=== PATIENT | female | born 1945 | race Caucasian/White ===

== ENCOUNTER 2021-10-07 15:51 | Emergency (ER) | payer MEDICARE, MEDICAID ==
[~2021-10-07] VITALS: Ht 157.5 cm; Wt 104.5 kg
[2021-10-07 16:34] LABS: Basophils # (auto) 0.1 10 ^3/uL (0-0.2); Basophils % (auto) 0.8 % (0.0-2.0); Eosinophils # (auto) 0.4 10 ^3/uL (0-0.8); Hematocrit 32.7 % (36.0-46.0); Hemoglobin 10.7 g/dL (12.2-16.2); Lymphocytes # (auto) 2.8 10 ^3/uL (0.4-5.4); Lymphocytes % (auto) 35.9 % (10.0-50.0); Mean Corpuscular Hemoglobin 31.6 pg (28.0-32.0); Mean Corpuscular Hgb Conc. 32.9 g/dL (32.0-36.0); Monocytes # (auto) 0.5 10 ^3/uL (0-1.3); Monocytes % (auto) 6.6 % (0.0-12.0); Neutrophils # (auto) 4.1 10 ^3/uL (1.6-8.6); Neutrophils % (auto) 51.7 % (37.0-80.0); Nucleated Red Blood Cells % 0.1 %; Red Cell Distribution Width 13.5 % (11.8-14.3); White Blood Cell 7.9 10^3/uL (4.4-10.8)
[2021-10-07 16:53] LABS: Calcium 8.1 mg/dL (8.5-10.1); Chloride 109 mmol/L (98-107); Potassium 4.1 mmol/L (3.5-5.1); Sodium 140 mmol/L (136-145)
[2021-10-07 16:56] LABS: INR 0.97 (0.9-1.15); Partial Thromboplastin Time 21.9 sec (24.6-33.4)
[2021-10-07 17:02] LABS: Alanine Aminotransferase 20 U/L (13-56); Albumin 3.2 g/dL (3.4-5.0); Alkaline Phosphatase 92 U/L (45-117); Anion Gap 5 (5-15); Aspartate Aminotransferase 16 U/L (15-37); BUN/Creatinine Ratio 12.2; Bilirubin, Total 0.2 mg/dL (0.2-1.0); Blood Urea Nitrogen 14 mg/dL (7-18); Carbon Dioxide 26 mmol/L (21-32); GFR African American 59 mL/min; GFR Non-African American 49 mL/min; Glucose 113 mg/dL (74-106)
[2021-10-07] MEDS ORDERED: KETOROLAC TROMETH 60MG/2ML VIAL IM ONE (19:00)
[2021-10-07 19:30] VITALS: BP 130/74
== END 2021-10-07 19:51 | disposition home or self-care (01) ==
LOC: ER 15:51
DX: R06.00 Dyspnea, unspecified (principal); M79.10 Myalgia, unspecified site; J84.9 Interstitial pulmonary disease, unspecified
CPT/HCPCS: 36415; 71045; 80053; 83735; 83880; 84484; 85025; 85610; 85730; 93005; 96372; 99285; J1885

== ENCOUNTER 2022-01-06 09:34 | Emergency (ER) | payer MEDICARE, MEDICAID ==
[~2022-01-06] VITALS: Ht 165.1 cm; Wt 90.0 kg
[2022-01-06] MEDS ORDERED: MEPERIDINE HCL (50 MG/ML) 1 ML VIAL IM ONE (11:30)
[2022-01-06] MEDS ORDERED: PROMETHAZINE HCL 25 MG/ML 1ML IM ONE (11:30)
[2022-01-06 11:46] VITALS: BP 120/94
[2022-01-06] MEDS ORDERED: PRED20TA2 PO (12:06)
[2022-01-06] MEDS ORDERED: TRAM-297 PO (12:06)
== END 2022-01-06 12:46 | disposition home or self-care (01) ==
LOC: ER 09:34
DX: M51.36 Other intervertebral disc degeneration, lumbar region (principal); M50.30 Other cervical disc degeneration, unspecified cervical region; Z88.6 Allergy status to analgesic agent
CPT/HCPCS: 72040; 72100; 96372; 99284; J2175; J2550

== ENCOUNTER 2023-07-11 12:48 | Inpatient (IN) | payer MEDICARE, MEDICAID ==
[~2023-07-11] VITALS: Ht 165.1 cm; Wt 97.7 kg
[~2023-07-11 12:48] MED LIST: PRED20TA2 PO; TRAM-297 PO
[2023-07-11 13:44] LABS: Urine Bacteria None Seen /hpf (None Seen)
[2023-07-11 14:14] LABS: Urine Blood Negative /uL (Negative); Urine Clarity Clear (Clear); Urine Protein, UAD Negative (Negative); Urine Specific Gravity 1.005 (1.001-1.035); Urine Urobilinogen Normal (Negative); Urine WBC <1 /hpf (0 - 5)
[2023-07-11 14:21] LABS: Urine Color STRAW (Yellow)
[2023-07-11 14:29] LABS: Basophils # (auto) 0.1 10 ^3/uL (0-0.2); Basophils % (auto) 0.8 % (0.0-2.0); Eosinophils # (auto) 0.4 10 ^3/uL (0-0.8); Eosinophils % (auto) 5.6 % (0.0-7.0); Hematocrit 31.5 % (36.0-46.0); Hemoglobin 10.5 g/dL (12.2-16.2); Lymphocytes # (auto) 3.3 10 ^3/uL (0.4-5.4); Lymphocytes % (auto) 46.4 % (10.0-50.0); Mean Corpuscular Hemoglobin 32.3 pg (28.0-32.0); Mean Corpuscular Hgb Conc. 33.4 g/dL (32.0-36.0); Mean Corpuscular Volume 96.7 fL (80.0-100.0); Monocytes # (auto) 0.5 10 ^3/uL (0-1.3); Monocytes % (auto) 7.7 % (0.0-12.0); Neutrophils # (auto) 2.8 10 ^3/uL (1.6-8.6); Neutrophils % (auto) 39.5 % (37.0-80.0); Nucleated Red Blood Cells % 0.1 %; Red Blood Cells 3.25 10^6/uL (4.0-5.20); White Blood Cell 7.1 10^3/uL (4.4-10.8)
[2023-07-11 15:12] LABS: Alanine Aminotransferase 19 U/L (7-40); Albumin 3.9 g/dL (3.2-4.8); Alkaline Phosphatase 80 U/L (46-116); Anion Gap 5 (5-15); Aspartate Aminotransferase 18 U/L (13-40); BUN/Creatinine Ratio 12.4 (10.0-20.0); Bilirubin, Total 0.4 mg/dL (0.2-1.0); Blood Urea Nitrogen 12 mg/dL (9-23); Calcium 9.4 mg/dL (8.5-10.1); Carbon Dioxide 28 mmol/L (20-30); Chloride 100 mmol/L (98-107); Glucose 101 mg/dL (74-106); Sodium 133 mmol/L (136-145); Total Protein 9.6 g/dL (5.7-8.2)
[2023-07-11] MEDS ORDERED: ATOR40TA52 PO (15:57)
[2023-07-11] MEDS ORDERED: LOSA-534 PO (15:57)
[2023-07-11] MEDS ORDERED: DOCUSATE SOD 100 MG CAP PO PRN (16:00)
[2023-07-11] MEDS ORDERED: HYDROcodone-ACET 5/325MG TAB PO PRN (16:00)
[2023-07-11] MEDS ORDERED: NITROGLYCERIN 0.4 MG SL TAB SL PRN (16:00)
[2023-07-11] MEDS ORDERED: ONDANSETRON HCL 4 MG/2 ML VIAL IV PRN (16:00)
[2023-07-11] MEDS ORDERED: MORPHINE SULFATE INJ 2 MG/ml SYRG IV PRN ×2 (16:00)
[2023-07-11] MEDS: PANTOPRAZOLE 40 MG/10 ML VIAL INJ IV ONE (16:15)
[2023-07-11] MEDS: SODIUM CHLORIDE 0.9% 1,000 ML IV ONE (16:15)
[2023-07-11] MEDS: ACETAMINOPHEN 325 MG TAB PO PRN (16:20)
[2023-07-11] MEDS ORDERED: IPRATROPIUM BROM 0.5 MG/2.5ML INH SOL NEB PRN (16:45)
[2023-07-11] MEDS ORDERED: ALBUTEROL SULF 2.5 MG/0.5ML(0.5%) NEB SOLN NEB PRN (16:45)
[2023-07-11 20:28] VITALS: PULSE 85; RESP 16; O2SAT 94
[2023-07-11] MEDS: SUCRALFATE 1 GM TAB PO SCH (20:28)
[2023-07-11 21:08] VITALS: BP 143/64; PULSE 99; RESP 18; O2SAT 94
[2023-07-11 22:20] VITALS: BP 154/63; PULSE 85; RESP 18; TEMP 98.1; O2SAT 96
[2023-07-11 22:22] VITALS: BP 154/63; PULSE 85; RESP 16; RESP 18; TEMP 98.1; O2SAT 96
[2023-07-11 22:40] VITALS: O2SAT 94
[2023-07-11] MEDS: ATORVASTATIN 20 MG TAB PO SCH (23:10)
[2023-07-12] VITALS (7 sets, daily range): BP systolic 104–142; BP diastolic 43–85; PULSE 76–95; RESP 15–20; TEMP 97.9–98.7; O2SAT 92–99
[2023-07-12] MEDS ORDERED: LIDO1PAD55 TOP (03:01)
[2023-07-12] MEDS ORDERED: IBUP-1455 PO (03:01)
[2023-07-12 07:27] LABS: Basophils # (auto) 0.1 10 ^3/uL (0-0.2); Basophils % (auto) 1.4 % (0.0-2.0); Eosinophils # (auto) 0.4 10 ^3/uL (0-0.8); Eosinophils % (auto) 5.3 % (0.0-7.0); Hematocrit 28.1 % (36.0-46.0); Hemoglobin 9.1 g/dL (12.2-16.2); Lymphocytes % (auto) 38.4 % (10.0-50.0); Mean Corpuscular Hemoglobin 31.8 pg (28.0-32.0); Mean Corpuscular Hgb Conc. 32.4 g/dL (32.0-36.0); Mean Corpuscular Volume 98.1 fL (80.0-100.0); Monocytes # (auto) 0.7 10 ^3/uL (0-1.3); Monocytes % (auto) 8.9 % (0.0-12.0); Neutrophils # (auto) 3.6 10 ^3/uL (1.6-8.6); Nucleated Red Blood Cells % 0.2 %; Red Blood Cells 2.87 10^6/uL (4.0-5.20); Red Cell Distribution Width 14.1 % (11.8-14.3); White Blood Cell 7.8 10^3/uL (4.4-10.8)
[2023-07-12 07:37] LABS: Alanine Aminotransferase 16 U/L (7-40); Albumin 3.6 g/dL (3.2-4.8); Alkaline Phosphatase 75 U/L (46-116); Anion Gap 4 (5-15); Aspartate Aminotransferase 14 U/L (13-40); BUN/Creatinine Ratio 12.6 (10.0-20.0); Bilirubin, Total 0.4 mg/dL (0.2-1.0); Blood Urea Nitrogen 12 mg/dL (9-23); Calcium 9.2 mg/dL (8.5-10.1); Carbon Dioxide 29 mmol/L (20-30); Chloride 104 mmol/L (98-107); Cholesterol 124 mg/dL (< 200); Glucose 98 mg/dL (74-106); HDL Cholesterol 33 mg/dL (40-59); LDL Cholesterol 69 mg/dL (< 100); Potassium 3.8 mmol/L (3.5-5.1); Sodium 137 mmol/L (136-145); Triglycerides 114 mg/dL (< 150)
[2023-07-12 07:38] LABS: Total Protein 8.7 g/dL (5.7-8.2)
[2023-07-12] MEDS ORDERED: PANTOPRAZOLE 40 MG/10 ML VIAL INJ IV SCH ×2 (10:00→22:00)
[2023-07-12] MEDS: LOSARTAN POTASSIUM 50 MG TAB PO SCH (11:48)
[2023-07-12] MEDS: ENOXAPARIN SOD 40 MG/0.4 ML SYRINGE SC SCH (11:49)
[2023-07-12] MEDS ORDERED: SUCR1TAB PO (13:09)
[2023-07-12] MEDS ORDERED: PANT40TA2 PO (13:09)
[2023-07-13 09:24] LABS: Hepatitis B Surface Antigen Negative (Negative)
[2023-07-13 09:46] LABS: Hepatitis C Antibody Negative (Negative)
== END 2023-07-12 16:00 | disposition home or self-care (01) | DRG 392 ==
LOC: ER 12:54 → OVERFLOW 15:56 → CENTRAL 22:05
PROVIDERS: ADMIT Nurse Practitioner Family; ATTEND Internal Medicine Geriatric Medicine
DX: K29.00 Acute gastritis without bleeding (principal); J84.9 Interstitial pulmonary disease, unspecified; C90.00 Multiple myeloma not having achieved remission; E78.5 Hyperlipidemia, unspecified; I10 Essential (primary) hypertension; T39.395A Adverse effect of other nonsteroidal anti-inflammatory drugs [NSAID], initial encounter; E04.2 Nontoxic multinodular goiter; K40.20 Bilateral inguinal hernia, without obstruction or gangrene, not specified as recurrent; Z88.6 Allergy status to analgesic agent; Z79.899 Other long term (current) drug therapy; Z85.820 Personal history of malignant melanoma of skin; Z90.49 Acquired absence of other specified parts of digestive tract; Z82.49 Family history of ischemic heart disease and other diseases of the circulatory system; Z80.0 Family history of malignant neoplasm of digestive organs; Y92.89 Other specified places as the place of occurrence of the external cause
CPT/HCPCS: 36415; 74176; 80053; 80061; 81001; 83690; 84443; 85025; 86803; 87340; 93971; C9113; G0378

== ENCOUNTER 2023-07-20 16:26 | Emergency (ER) | payer MEDICARE, MEDICAID ==
[~2023-07-20] VITALS: Ht 165.1 cm; Wt 95.4 kg
[~2023-07-20 16:26] MED LIST changes: +ATOR40TA52 PO; +LIDO1PAD55 TOP; +LOSA-534 PO; +PANT40TA2 PO; -PRED20TA2 PO; +SUCR1TAB PO
[2023-07-20] MEDS: KETOROLAC TROMETH 30 MG/ML 1ML VIAL IM ONE (17:53)
[2023-07-20 19:49] VITALS: BP 152/92; PULSE 77; RESP 18; TEMP 97.9; O2SAT 95
== END 2023-07-20 19:57 | disposition home or self-care (01) ==
LOC: ER 16:26
DX: M79.662 Pain in left lower leg (principal); R51.9 Headache, unspecified; I10 Essential (primary) hypertension; E78.5 Hyperlipidemia, unspecified; R42 Dizziness and giddiness; Z88.6 Allergy status to analgesic agent
CPT/HCPCS: 93971; 96372; 99285; J1885

== ENCOUNTER 2023-08-17 21:55 | Emergency (ER) | payer MEDICARE, MEDICAID ==
[~2023-08-17] VITALS: Ht 165.1 cm; Wt 97.2 kg
[2023-08-17 23:09] LABS: Urine Bacteria FEW /hpf (None Seen); Urine Blood Negative /uL (Negative); Urine Clarity Clear (Clear); Urine Protein, UAD Negative (Negative); Urine Specific Gravity 1.004 (1.001-1.035); Urine Urobilinogen Normal (Negative); Urine WBC <1 /hpf (0 - 5)
[2023-08-17 23:11] LABS: Urine Color Straw (Yellow)
[2023-08-17] MEDS: DICYCLOMINE HCL 10 MG CAP PO ONE (23:59)
[2023-08-18] MEDS: KETOROLAC TROMETH 60MG/2ML VIAL IM ONE
[2023-08-18 00:08] VITALS: BP 128/76; PULSE 85; RESP 18; TEMP 98.3; O2SAT 95
[2023-08-18] MEDS ORDERED: DICY10CA PO (00:51)
== END 2023-08-18 01:02 | disposition home or self-care (01) ==
LOC: ER 21:55
DX: I10 Essential (primary) hypertension (principal); R10.9 Unspecified abdominal pain; E78.5 Hyperlipidemia, unspecified; M19.90 Unspecified osteoarthritis, unspecified site; E66.01 Morbid (severe) obesity due to excess calories; Z68.35 Body mass index [BMI] 35.0-35.9, adult; Z85.9 Personal history of malignant neoplasm, unspecified; Z98.890 Other specified postprocedural states; Z88.8 Allergy status to other drugs, medicaments and biological substances; Z79.899 Other long term (current) drug therapy
CPT/HCPCS: 81001; 93005; 96372; 99284; J0500; J1885

== ENCOUNTER → 2023-10-23 | Outpatient (CLI) | payer MEDICARE, MEDICAID ==
[~2023-10-23] MED LIST changes: +DICY10CA PO
[2023-10-23 11:03] LABS: Erythrocyte Sedimentation Rate 103 mm/hr (0-20)
[2023-10-24 08:06] LABS: Complement C3 119 mg/dL (82-167); Rheumatoid Arthritis Factor <10.0 IU/mL (<14.0); Thyroid Peroxidase (TPO) Ab <9 IU/mL (0-34)
[2023-10-24 12:06] LABS: Anti-Nuclear Antibody Direct Negative (Negative); Anti-dsDNA Antibody <1 IU/mL (0-9); Antiscleroderma-70 Antibody <0.2 AI (0.0-0.9); RNP Antibody <0.2 AI (0.0-0.9); Sjogren's Anti-SS-A Antibody <0.2 AI (0.0-0.9); Sjogren's Anti-SS-B Antibody <0.2 AI (0.0-0.9); Smith Antibody <0.2 AI (0.0-0.9)
== END | disposition home or self-care (01) ==
LOC: LAB 09:52
PROVIDERS: ATTEND Internal Medicine
DX: C90.00 Multiple myeloma not having achieved remission (principal); N18.2 Chronic kidney disease, stage 2 (mild); E04.1 Nontoxic single thyroid nodule
CPT/HCPCS: 36415; 84550; 85652; 86160; 86225; 86235; 86376; 86431

== ENCOUNTER → 2024-01-09 | Outpatient (CLI) | payer MEDICARE, MEDICAID ==
[2024-01-09 13:35] LABS: Erythrocyte Sedimentation Rate 113 mm/hr (0-20)
[2024-01-09 13:46] LABS: Alanine Aminotransferase 20 U/L (7-40); Albumin 3.8 g/dL (3.2-4.8); Alkaline Phosphatase 93 U/L (46-116); Anion Gap 1 (5-15); Aspartate Aminotransferase 15 U/L (13-40); BUN/Creatinine Ratio 11.5 (10.0-20.0); Bilirubin, Total 0.3 mg/dL (0.2-1.0); Blood Urea Nitrogen 11 mg/dL (9-23); Calcium 9.3 mg/dL (8.7-10.4); Carbon Dioxide 31 mmol/L (20-31); Chloride 105 mmol/L (98-107); Cholesterol 185 mg/dL (< 200); Glucose 92 mg/dL (74-106); HDL Cholesterol 44 mg/dL (40-59); LDL Cholesterol 111 mg/dL (< 100); Potassium 4.3 mmol/L (3.5-5.1); Sodium 137 mmol/L (136-145); Total Protein 9.3 g/dL (5.7-8.2); Triglycerides 120 mg/dL (< 150)
== END | disposition home or self-care (01) ==
LOC: LAB 12:37
PROVIDERS: ATTEND Internal Medicine
DX: E04.1 Nontoxic single thyroid nodule (principal); M54.2 Cervicalgia; Z79.899 Other long term (current) drug therapy
CPT/HCPCS: 36415; 80053; 80061; 84443; 85652

== ENCOUNTER 2024-02-16 11:17 | Emergency (ER) | payer MEDICARE, MEDICAID ==
[~2024-02-16] VITALS: Ht 165.1 cm; Wt 96.0 kg
--- NOTE | 2024-02-16 12:12 | ED.PDOC ---
SOB-HPI HPI Comments HPI: Poor Historian. 78-year-old female sent from urgent Care for further evaluation for persistent cough and congestion mild shortness of breath. requested lab work. patient just completed a course of antibiotics and steroids but does not feel like she has improved. Patient states that she received a breathing treatment in urgent Care earlier prior to coming to the ED. VITALS: Temp: 98.2 F RR: 17 02 sat : 94 % on room air HR: 92 BP: 111/43 PMH: interstitial lung disease, thyroid nodules , HTN, hyperlipidemia PSH: cholecystectomy, rotator cuff x2, tubal ligation Social history: denies tobacco use, denies ETOH use, denies drug use Medications: albuterol, unknown hypertension and hyperlipidemia meds Allergies: codeine REVIEW OF SYSTEMS: CONSTITUTIONAL: Denies acute: fever, diaphoresis, chills, HEAD: Denies acute: headache, photophobia Eyes: Denies acute: Double vision, vision loss, eye pain, eye discharge. EARS: Denies acute: tinnitus, hearing loss, ear discharge, ear pain, THROAT: Denies acute: sore throat, swelling, difficulty swallowing , pain with swallowing, change in voice. NECK: Denies acute: neck pain, neck swelling, stiff neck. HEART: Denies acute : chest pain, palpitations, LUNGS: Denies acute: hemoptysis ABDOMEN: Denies acute: abdominal pain, Nausea, Vomiting, diarrhea, melena , hematemesis, hematochezia SKIN: Denies acute: rash, redness, lesions, itchiness. EXTREMITIES: Denies acute: calf pain, numbness, tingling, weakness, denies pain in extremity. Denies acute: Low back pain. Neuro: Denies acute: focal neurological deficit, motor or sensory focal neurological deficit, tremors, seizure like activity, confusion, dizziness, change in mental status, loss of bowel or bladder function, cauda equina like symptoms. : Denies acute: dysuria, hematuria, flank pain, increase in urinary frequency. PSYCH: Denies acute: hallucination, suicidal ideation, homicidal ideation. FEMALE: Denies acute: abnormal vaginal bleeding, foul odor, unusual discharge. PHYSICAL EXAM: General: no acute distress, awake and alert. Head: normocephalic, atraumatic. Neck: supple, trachea is midline, no swelling. Throat: Normal phonation. Eyes:, no erythema, no purulent discharge, no proptosis, no icterus. Heart: regular rate, regular rhythm, no significant murmur appreciated. Lungs: no apparent respiratory distress, Able to speak in full sentences. No wheezing, no rhonchi, no crackles. No stridors Clear to auscultation bilaterally. Abdomen: non tender to palpation, non distended, soft, no guarding, no rebound, + bowel sounds. Obese. Neuro: Awake, Alert, oriented to name, self, situation, follows commands GCS=15. Speech is normal. Skin: no petechia, no purpura, no cyanosis, non-pale, not jaundice. Lower extremities: --trace bilateral - Pitting edema no deformity, no focal swelling, no calf TTP. Makes eye contact. moves all four extremities. Face: no apparent facial droop. 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 Was a procedure done?: No Differential Dx Differential Diagnosis: Other (DDx include ACS, unstable angina, anxiety, PE, pneumothroax, neoplasm, cardiac ischemia, COPD, asthma, CHF, pleural effusion, tobacco abuse, pneumonia, hypoxia, hypercapnia, anemia., infection/sepsis., pulmonary edema. Asthma, Cardiac tamponade, infection.) X-Ray, Labs, Meds, VS Vital Signs Date Time Temp Pulse Resp B/P (MAP) Pulse Ox O2 Delivery O2 Flow Rate FiO2 02/16/24 21:48 17 97 Room Air 02/16/24 21:47 98.4 89 17 128/72 (90) 97 98.4 02/16/24 16:03 19 94 Room Air* 0 21 02/16/24 16:02 97 19 96 Room Air 02/16/24 16:02 98.6 97 19 134/86 (102) 96 98.6 02/16/24 11:59 98.2 92 17 111/43 (65) 94 Lab Test 02/16/24 14:55 02/16/24 13:30 02/16/24 13:01 02/16/24 12:08 Range/Units Troponin I High Sensitivity 9 9 </=34 ng/L Blood Gas Specimen Type Arterial Blood Gas Sample Site Right radial Blood Gas Patient Temperature 37.0 Arterial Blood Date Drawn [id number] Arterial Blood pH 7.427 7.350-7.450 Arterial Blood Partial Pressure CO2 39.7 32.0-45.0 mmHg Arterial Blood Partial Pressure O2 81.2 L 83.0-108.0 mmHg Arterial Blood HCO3 25.6 21.0-28.0 mmol/L Arterial Blood Oxygen Saturation 95.3 94.0-98.0 % Arterial Blood Base Excess 1.2 -2.0-3.0 mmol/L Arterial Blood Oxyhemoglobin 94.8 94.0-98.0 % Arterial Blood Carboxyhemoglobin 0.1 L 0.5-1.5 % Arterial Blood Methemoglobin 0.4 0.0-1.5 % Dao Test Yes Blood Gas Total Hemoglobin 11.70 L 12.0-16.0 g/dL Blood Gas Modality Room air FiO2 % 21.0 Influenza Type A Antigen Negative Negative Influenza Type B Antigen Negative Negative SARS-CoV-2 Antigen (Rapid) Negative NEGATIVE Test 02/16/24 11:58 Range/Units White Blood Count 9.8 4.4-10.8 10^3/uL Red Blood Count 3.33 L 4.0-5.20 10^6/uL Hemoglobin 10.8 L 12.2-16.2 g/dL Hematocrit 32.9 L 36.0-46.0 % Mean Corpuscular Volume 98.7 80.0-100.0 fL Mean Corpuscular Hemoglobin 32.6 H 28.0-32.0 pg Mean Corpuscular Hemoglobin Concent 33.0 32.0-36.0 g/dL Red Cell Distribution Width 13.9 11.8-14.3 % Platelet Count 344 140-450 10^3/uL Mean Platelet Volume 7.2 6.9-10.8 fL Neutrophils (%) (Auto) 37.0-80.0 % Lymphocytes (%) (Auto) 10.0-50.0 % Monocytes (%) (Auto) 0.0-12.0 % Basophils (%) (Auto) 0.0-2.0 % Neutrophils # (Auto) 1.6-8.6 10 ^3/uL Lymphocytes # (Auto) 0.4-5.4 10 ^3/uL Monocytes # (Auto) 0-1.3 10 ^3/uL Differential Total Cells Counted 100.0 100 Neutrophils % (Manual) 32 L 37.0-80.0 Band Neutrophils % (Manual) 0 Lymphocytes % (Manual) 62 H 10.0-50.0 Monocytes % (Manual) 0 0-12 Eosinophils % (Manual) 2 0-7 Basophils % (Manual) 0 0.0-2.0 Metamyelocytes % (manual) 0 Myelocytes % (Manual) 0 Promyelocytes % (Manual) 0 Blast Cells % (Manual) 0 Reactive Lymphocytes 4 Platelet Estimate Adequate Sodium Level 138 136-145 mmol/L Potassium Level 3.8 3.5-5.1 mmol/L Chloride Level 104 98-107 mmol/L Carbon Dioxide Level 29 20-31 mmol/L Anion Gap 5 5-15 Blood Urea Nitrogen 16 9-23 mg/dL Creatinine 1.15 H 0.550-1.02 mg/dL Glomerular Filtration Rate Calc 49 >90 mL/min BUN/Creatinine Ratio 13.9 10.0-20.0 Serum Glucose 145 H 74-106 mg/dL Calcium Level 9.5 8.7-10.4 mg/dL Total Bilirubin 0.3 0.2-1.0 mg/dL Aspartate Amino Transferase (AST) 15 13-40 U/L Alanine Aminotransferase (ALT) 29 7-40 U/L Alkaline Phosphatase 78 46-116 U/L Troponin I High Sensitivity 9 </=34 ng/L B-Type Natriuretic Peptide 29.30 0-100 pg/mL Total Protein 8.6 H 5.7-8.2 g/dL Albumin 3.7 3.2-4.8 g/dL [place] [address] Ph: [phone] DIAGNOSTIC IMAGING Diagnostic Imaging Report : [id number] Signed PATIENT: ELLIOTT CHEN LACCT: [id number] UNIT: [id number] : 1945 LOC: ER ROOM / BED: / AGE / SEX: 78 / F ADM STATUS: REG ER SERVICE 1150 ORDERING PHYSICIAN: JAYCE ALBRECHT DO PROCEDURE(s): CXRP - CHEST PORTABLE REASON: sob ORDER NUMBER(s): [id number], ACCESSION NUMBER(s): [id number] CHEST RADIOGRAPH Indication: sob Technique: Single frontal view of the chest was obtained Comparison: CHEST XRAY 1 VIEW on DOS: 10/07/21, CXR1 on DOS: 10/07/21 FINDINGS: Lines and Tubes: None Lungs: No focal consolidation. Pleura: No effusion. No pneumothorax. Cardiomediastinal contours: Unremarkable Bones: No acute osseous abnormality. IMPRESSION: No acute cardiopulmonary disease. ATED BY: ERNESTINA HOUSTON MD DICTATED DATE/TIME: 02/16/241208 SIGNED BY: ERNESTINA HOUSTON MD SIGNED DATE/TIME: 02/16/241208 CC: Patient Education/Counseling: Diagnosis, Treatment Family Education/Counseling: No Family Present Comments MDM: Patient presented with the above HPI.----- shortness of breath and cough-- - workup was initiated. patient was found with the above mentioned diagnosis. the following medications were ordered: med neb treatment, acetaminophen, ipratropium med neb, albuterol, solumedrol, the following tests were ordered: ABG, troponin x3, EKGx1, chest x-ray, UA, Influenza A and B, COVID test, CBC CMP, BNP Patient ED course and VS have been stabilized. Patient has been reassessed in the ED and remained in a stable condition. Patient has been observed in the ED adequate length of time to insure improvement/stability. Escalation of care considered: Consideration of escalation to observation or admission. patient was DISCHARGED after further evaluation and treatment of their presentation. All the reports of any imaging studies that were ordered by myself were reviewed by myself. Departure 1 Departure Time of Disposition: 18:55 Impression: Primary Impression: URI (upper respiratory infection) Additional Impressions: Anemia Bronchitis Disposition: HOME / SELF CARE / HOMELESS Condition: Stable Additional Instructions: Additional discharge instructions: You MUST follow-up with your primary care/family doctor in 1 to 2 days. If you are unable to see your primary care/family doctor, please return to our emergency room for re-assessment and re-evaluation in 1 to 2 days. Return to the emergency room here in our facility or to the nearest ER [facility] if your symptoms change or worsen. CONSULTATIONS: you MUST Follow-up for consultation as soon as possible with: -pulmonology and cardiology in 1-2 days. Please call for appointment. You MUST call the consultants office yourself to make an appointment. You may need to arrange that through your insurance and/or your primary/family doctor. If you are unable to see the sales consultant insurance in 1 to 2 days, you must return to our emergency room (or any other ER of your choice) for re-assessment and re- evaluation. Adequate fluid hydration. Use your inhaler at home as instructed. Below is a copy of your radiological report for follow up: [place] [address] Ph: [phone] DIAGNOSTIC IMAGING Diagnostic Imaging Report : [id number] Signed PATIENT: ELLIOTT CHEN ACCT: [id number] UNIT: [id number] : 1945 LOC: ER ROOM / BED: / AGE / SEX: 78 / F ADM STATUS: REG ER SERVICE 1150 ORDERING PHYSICIAN: JAYCE ALBRECHT DO PROCEDURE(s): CXRP - CHEST PORTABLE REASON: sob ORDER NUMBER(s): [id number], ACCESSION NUMBER(s): [id number] CHEST RADIOGRAPH Indication: sob Technique: Single frontal view of the chest was obtained Comparison: CHEST XRAY 1 VIEW on DOS: 10/07/21, CXR1 on DOS: 10/07/21 FINDINGS: Lines and Tubes: None Lungs: No focal consolidation. Pleura: No effusion. No pneumothorax. Cardiomediastinal contours: Unremarkable Bones: No acute osseous abnormality. IMPRESSION: No acute cardiopulmonary disease. ATED BY: ERNESTINA HOUSTON MD DICTATED DATE/TIME: 02/16/24 1209 SIGNED BY: ERNESTINA HOUSTON MD SIGNED DATE/TIME: 02/16/24 120 CC: Discharged With: Self Critical Care Note Critical Care Time?: No Heart Score Heart Score: Heart Score Response (Comments) Value History Moderate Suspicious 1 Age >65 2 Risk Factors 1 or 2 risk factors 1 Total 4 I personally scribed for JAYCE ALBRECHT DO ([facility]) on 02/16/24 at 12:12. Electronically submitted by Gerson Cardoza ([facility] [employer] [employer] I personally scribed for JAYCE ALBRECHT DO ([facility]) on 02/16/24 at 13:54. Electronically submitted by Gerson Cardoza ([facility]). I personally scribed for JAYCE ALBRECHT DO ([facility]) on 02/16/24 at 19:53. Electronically submitted by Gerson Cardoza ([facility]). JAYCE ALBRECHT DO Feb 16, 2024 12:12
[2024-02-16 12:18] LABS: Hematocrit 32.9 % (36.0-46.0); Hemoglobin 10.8 g/dL (12.2-16.2); Mean Corpuscular Hemoglobin 32.6 pg (28.0-32.0); Mean Corpuscular Volume 98.7 fL (80.0-100.0); Platelet Count (auto) 344 10^3/uL (140-450); Red Blood Cells 3.33 10^6/uL (4.0-5.20); Red Cell Distribution Width 13.9 % (11.8-14.3); White Blood Cell 9.8 10^3/uL (4.4-10.8)
[2024-02-16 12:21] LABS: Band Neutrophils % (manual) 0; Basophils % (manual) 0 (0.0-2.0); Blast Cells 0; Metamyelocytes % 0; Monocytes % (manual) 0 (0-12); Myelocytes % 0; Promyelocytes % 0
[2024-02-16 12:41] LABS: Alanine Aminotransferase 29 U/L (7-40); Albumin 3.7 g/dL (3.2-4.8); Alkaline Phosphatase 78 U/L (46-116); Anion Gap 5 (5-15); Aspartate Aminotransferase 15 U/L (13-40); BUN/Creatinine Ratio 13.9 (10.0-20.0); Blood Urea Nitrogen 16 mg/dL (9-23); Calcium 9.5 mg/dL (8.7-10.4); Carbon Dioxide 29 mmol/L (20-31); Chloride 104 mmol/L (98-107); Potassium 3.8 mmol/L (3.5-5.1); Sodium 138 mmol/L (136-145)
[2024-02-16 12:42] LABS: Bilirubin, Total 0.3 mg/dL (0.2-1.0)
[2024-02-16 13:01] LABS: Glucose 145 mg/dL (74-106); Total Protein 8.6 g/dL (5.7-8.2)
[2024-02-16 13:10] LABS: Rapid Influenza A Negative (Negative); Rapid Influenza B Negative (Negative)
[2024-02-16 13:11] LABS: COVID19 ANTIGEN SOFIA FIA NEGATIVE (NEGATIVE)
[2024-02-16 13:19] LABS: Eosinophils % (manual) 2 (0-7); Lymphocytes % (manual) 62 (10.0-50.0); Platelet Estimate Adequate; Reactive Lymphocytes 4
[2024-02-16 13:44] LABS: Base Excess 1.2 mmol/L (-2.0-3.0)
[2024-02-16] MEDS: ACETAMINOPHEN 325 MG TAB PO ONE (15:53)
[2024-02-16] MEDS: ALBUTEROL SULF 2.5 MG/0.5ML(0.5%) NEB SOLN NEB ONE (16:03)
[2024-02-16] MEDS: IPRATROPIUM BROM 0.5 MG/2.5ML INH SOL NEB ONE (16:03)
[2024-02-16] MEDS: methylPREDNISolone SOD SUCC 125 MG/2 ML VL IV ONE (16:10)
[2024-02-16 21:47] VITALS: BP 128/72; PULSE 89; TEMP 98.4
[2024-02-16 21:48] VITALS: RESP 17; O2SAT 97
== END 2024-02-16 21:49 | disposition home or self-care (01) ==
LOC: ER 11:17
DX: D64.9 Anemia, unspecified (principal); J40 Bronchitis, not specified as acute or chronic; J06.9 Acute upper respiratory infection, unspecified; E78.5 Hyperlipidemia, unspecified; I10 Essential (primary) hypertension; M19.90 Unspecified osteoarthritis, unspecified site; Z88.5 Allergy status to narcotic agent; Z90.49 Acquired absence of other specified parts of digestive tract; Z98.51 Tubal ligation status; Z20.822 Contact with and (suspected) exposure to COVID-19
CPT/HCPCS: 36415; 36600; 71045; 80053; 82805; 83880; 84484; 85007; 85027; 87426; 87804; 94640; 96374; 99284; J2919

== ENCOUNTER 2024-04-10 09:46 | Inpatient (IN) | payer MEDICARE, MEDICAID ==
[~2024-04-10] VITALS: Ht 165.1 cm; Wt 97.0 kg
[2024-04-10] MEDS: diazePAM 5 MG TAB PO ONE (10:15)
--- NOTE | 2024-04-10 10:26 | ED.PDOC ---
Back pain HPI HPI Comments 78Y F with PMHx HTN, HLD, arthritis, and chronic back pain presents to ED for chief complaint back pain/spasms x5days. Pt states back pain radiates down LLE. Pt is being f/u by rheumatology and PCP. Pt has been taking Flexeril 10mg without relief. Per pt, MRI of spine was done within the last year. No other symptoms reported. Chief Complaint: Back Pain Time Seen by MD: 10:09 Primary Care Provider: POLLY Reyes Notes: Nurses Notes, Medications, Allergies Allergies: Coded Allergies: Codeine (Verified Allergy, Unknown, 10/07/21) Home Meds Active Scripts Dicyclomine Hcl (BENTYL CAPSULE) 10 Mg Cp, 1 CAP PO Q6HPRN, #30 CAP 0 Refills Prov:GENNARO RIOJAS PAC 08/18/23 Pantoprazole Sodium Sesquihydr (Protonix) 40 Mg Tab, 40 MG PO DAILY, #30 TAB 2 Refills Prov:ERENDIRA CHRISTOPHER MD 07/12/23 Sucralfate (Sucralfate) 1 Gm Tab, 1 GM PO QIDACHS for 30 Days, #120 TAB 2 Refills Prov:ERENDIRA CHRISTOPHER MD 07/12/23 Tramadol Hcl (Ultram) 50 Mg Tab, 1 TAB PO BID, #20 TAB Prov:ADA SANDOVAL 01/06/22 Reported Medications Lidocaine (Lidocaine) 5 % Pad, 1 PATCH TOP DAILY 07/12/23 Atorvastatin Calcium (ATORVASTATIN CALCIUM) 40 Mg Tab, 1 TAB PO DAILY 07/11/23 Losartan Potassium (Losartan Potassium) 50 Mg Tab, 1 TAB PO DAILY 07/11/23 Information Source: Patient Mode of Arrival: Ambulatory Timing: Days Duration: Since onset Location of Back pain: (B) Thoracic Radiates to: Posterior: (L) Calf, (L) Thigh Severity: Moderate Quality: Sharp Onset: Other Circumstance: Other History of: Chronic Back Pain Modifying Factors: Nothing Associated signs and symptoms: None Past Medical History PAST MEDICAL HISTORY: Arthritis, Cancer, High Lipids, HTN, Thyroid Surgical History: BTL, Cholecystectomy LITERATURE TEACHER 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: No Pertinent LITERATURE TEACHER History Family History Family History: Reviewed,noncontributory to illness Social History Smoker: Non-Smoker Alcohol: Denies ETOH Use Drugs: Denies Drug Use Lives In: Home Constitutional: denies: chills, diaphoresis, fatigue, fever, malaise, sweats, weakness, others EENTM: denies: blurred vision, double vision, ear bleeding, ear discharge, ear drainage, ear pain, ear ringing, eye pain, eye redness, hearing loss, mouth pain, mouth swelling, nasal discharge, nose bleeding, nose congestion, nose pain, photophobia, tearing, throat pain, throat swelling, voice changes, others Respiratory: denies: cough, hemoptysis, orthopnea, SOB at rest, shortness of breath, SOB with excertion, stridor, wheezing, others Cardiovascular: denies: chest pain, dizzy spells, diaphoresis, Dyspnea on exertion, edema, irregular heart beat, left arm pain, lightheadedness, palpitations, PND, syncope, others Gastrointestinal: denies: abdomen distended, abdominal pain, blood streaked bowels, constipated, diarrhea, dysphagia, difficulty swallowing, hematemesis, melena, nausea, poor appetite, poor fluid intake, rectal bleeding, rectal pain, vomiting, others Genitourinary: denies: abnormal vagina bleeding, burning, dyspareunia, dysuria, flank pain, frequency, hematuria, incontinence, pain, , vagina discharge, urgency, others Neurological: denies: dizziness, fainting, headache, left sided numbness, left sided weakness, numbness, paresthesia, pre-existing deficit, right sided numbness, right sided weakness, seizure, speech problems, tingling, tremors, weakness, others Musculoskeletal: reports: back pain, others (muscle spasms, LLE pain); denies: gout, joint pain, joint swelling, muscle pain, muscle stiffness, neck pain Integumetry: denies: bruises, change in color, change in hair/nails, dryness, laceration, lesions, lumps, rash, wounds, others Allergic/Immunocompromised: denies: Difficulty Healing, Frequent Infections, Hives, Itching, others Hematologic/Lymphatic: denies: anemia, blood clots, easy bleeding, easy bruising, swollen glands, others Endocrine: denies: excessive hunger, excessive sweating, excessive thirst, excessive urination, flushing, intolerance to cold, intolerance to heat, unexplained weight gain, unexplained weight loss, others Psychiatric: denies: anxiety, bipolar disorder, depression, hopeless, panic disorder, schizophrenia, sleepless, suicidal, others All Other Systems: Reviewed and Negative Physical Exam General Appearance: No Apparent Distress, Normal HEENT: Normal ENT Inspection, Pharynx Normal, TMs Normal Neck: Full Range of Motion, Non-Tender, Normal, Normal Inspection Respiratory: Chest Non-Tender, Lungs Clear, No Accessory Muscle Use, No Respiratory Distress, Normal Breath Sounds Cardiovascular: No Edema, No JVD, No Murmur, No Gallop, Normal Peripheral Pulses, Regular Rate/Rhythm Breast Exam: Deferred Gastrointestinal: No Organomegaly, Non Tender, No Pulsatile Mass, Normal Bowel Sounds, Soft Genitalia: Deferred Pelvic: Deferred Rectal: Deferred Extremities: No calf tenderness, Normal capillary refill, Normal inspection, Normal range of motion, Non-tender, No pedal edema Musculoskeletal : Extremity Location: Back (mid thoracic) Apperance: Tenderness Neurologic: Alert, authorization coordinator II-XII nml as Tested, No Motor Deficits, Normal Affect, Normal Mood, No Sensory Deficits Cerebellar Function: NOT DONE Reflexes: NOT DONE Skin: Dry, Normal Color, Warm Lymphatic: No Adenopathy Was a procedure done? Was a procedure done?: No Back Pain Differential Dx Differential Diagnosis: Musculoskeletal Pain, Strain X-Ray, Labs, Meds, VS Vital Signs Date Time Temp Pulse Resp B/P (MAP) Pulse Ox O2 Delivery O2 Flow Rate FiO2 04/10/24 13:31 98.7 100 18 149/81 (103) 95 98.7 04/10/24 10:55 98.0 102 18 140/95 (110) 94 98.0 04/10/24 10:55 102 18 94 Room Air* 0 21 04/10/24 09:59 97.0 114 20 156/99 (118) 95 04/10/24 09:55 108 Lab Test 04/10/24 11:25 Range/Units Urine Color Light-yellow Yellow Urine Clarity Turbid H Clear Urine pH 5.5 5.0-9.0 Urine Specific [place] 1.012 1.001-1.035 Urine Protein Negative Negative Urine Ketones Negative Negative Urine Blood Negative Negative /uL Urine Nitrite Negative Negative Urine Bilirubin Negative Negative Urine Urobilinogen Normal Negative mg/dL Urine Leukocyte Esterase 1+ Negative /uL Urine RBC 1 0 - 4 /hpf Urine Microscopic WBC < 1 0-5 /HPF Urine Squamous Epithelial Cells Few <5 /hpf Urine Bacteria Few H None Seen /hpf Urine Glucose Normal Normal mg/dL Current Medications Medications (Trade) Dose Ordered Sig/Alondra Route Start Time Stop Time Status Last Admin Ketorolac Tromethamine (Toradol Injection) 15 mg ONCE ONCE IM 04/10/24 10:15 04/10/24 10:16 DC 04/10/24 10:57 [place] [address] Ph: [phone] DIAGNOSTIC IMAGING Diagnostic Imaging Report : [id number] Signed PATIENT: ELLIOTT CHEN LACCT: [id number] UNIT: [id number] : 1945 LOC: ER ROOM / BED: / AGE / SEX: 78 / F ADM STATUS: REG ER SERVICE 1014 ORDERING PHYSICIAN: BISMARK ZALDIVAR MD PROCEDURE(s): THOSP - SPINE THORACIC 2VIEW REASON: mid back pain spasms ORDER NUMBER(s): [id number], ACCESSION NUMBER(s): [id number] INDICATION: mid back pain spasms TECHNIQUE: 2 views of the thoracic spine were obtained. COMPARISON: None FINDINGS: There is no evidence of fracture, subluxation and/or dislocation. Degenerative changes of the spine. The alignment is anatomical. The paravertebral soft tissues were unremarkable. IMPRESSION: 1. Of the visualized spine, there is no evidence for fracture or subluxation. ATED BY: ANDRAE EDWARDS MD DICTATED DATE/TIME: 04/10/24 1049 SIGNED BY: ANDRAE EDWARDS MD SIGNED DATE/TIME: 04/10/24 104 CC: Time of 1ST Reevaluation: 10:39 Reevaluation 1ST: Unchanged Patient Education/Counseling: Diagnosis, Treatment Family Education/Counseling: No Family Present Departure 1 Departure Time of Disposition: 13:45 (Patient with intractable back pain. We will admit patient for further workup and expert consultation) Impression: Primary Impression: Thoracic back pain Qualified Codes: M54.6 - Pain in thoracic spine Disposition: ADMITTED INPATIENT Admit to: Med Surg Condition: Serious Critical Care Note Critical Care Time?: No Stability Stability form required: No Heart Score Heart Score: Heart Score Response (Comments) Value History N/A 0 EKG N/A 0 Age N/A 0 Risk Factors N/A 0 Troponin N/A 0 Total 0 I personally scribed for BISMARK ZALDIVAR MD ([facility]) on 04/10/24 at 10:26. Electronically submitted by Carla Soliz ([facility] I personally scribed for BISMARK ZALDIVAR MD ([facility]) on 04/10/24 at 10:53. Electronically submitted by Carla Soliz ([facility]). BISMARK ZALDIVAR MD Apr 10, 2024 10:26
--- NOTE | 2024-04-10 10:52 | DVH ---
INDICATION: mid back pain spasms TECHNIQUE: 2 views of the thoracic spine were obtained. COMPARISON: None FINDINGS: There is no evidence of fracture, subluxation and/or dislocation. Degenerative changes of the spine. The alignment is anatomical. The paravertebral soft tissues were unremarkable. IMPRESSION: 1. Of the visualized spine, there is no evidence for fracture or subluxation.
[2024-04-10 10:55] VITALS: PULSE 102; RESP 18; O2SAT 94
[2024-04-10] MEDS: KETOROLAC TROMETH 30 MG/ML 1ML VIAL IM ONE (10:57)
[2024-04-10 12:59] LABS: Urine Bacteria FEW /hpf (None Seen); Urine Blood Negative /uL (Negative); Urine Clarity Turbid (Clear); Urine Color Light-Yellow (Yellow); Urine Protein, UAD Negative (Negative); Urine Specific Gravity 1.012 (1.001-1.035); Urine Squamous Epithelial Cell FEW /hpf (<5); Urine Urobilinogen Normal (Negative); Urine WBC < 1 /HPF (0-5); Urine pH 5.5 (5.0-9.0)
[2024-04-10] MEDS: ONDANSETRON HCL 4 MG/2 ML VIAL IV ONE (13:45)
[2024-04-10] MEDS: MORPHINE SULFATE 4 MG/ML SYR/VIAL IV ONE (13:45)
[2024-04-10 14:36] LABS: Basophils # (auto) 0.1 10 ^3/uL (0-0.2); Basophils % (auto) 0.8 % (0.0-2.0); Eosinophils # (auto) 0.3 10 ^3/uL (0-0.8); Eosinophils % (auto) 4.8 % (0.0-7.0); Hematocrit 32.8 % (36.0-46.0); Lymphocytes # (auto) 2.8 10 ^3/uL (0.4-5.4); Lymphocytes % (auto) 39.7 % (10.0-50.0); Mean Corpuscular Hemoglobin 32.6 pg (28.0-32.0); Mean Corpuscular Hgb Conc. 33.5 g/dL (32.0-36.0); Mean Corpuscular Volume 97.2 fL (80.0-100.0); Monocytes # (auto) 0.5 10 ^3/uL (0-1.3); Monocytes % (auto) 7.1 % (0.0-12.0); Neutrophils # (auto) 3.4 10 ^3/uL (1.6-8.6); Neutrophils % (auto) 47.6 % (37.0-80.0); Nucleated Red Blood Cells % 0.1 %; Platelet Count (auto) 357 10^3/uL (140-450); Red Blood Cells 3.38 10^6/uL (4.0-5.20); Red Cell Distribution Width 13.9 % (11.8-14.3); White Blood Cell 7.1 10^3/uL (4.4-10.8)
[2024-04-10 14:43] LABS: Chloride 103 mmol/L (98-107); Potassium 4.7 mmol/L (3.5-5.1); Sodium 136 mmol/L (136-145)
[2024-04-10 14:44] LABS: Anion Gap 6 (5-15); Calcium 10.1 mg/dL (8.7-10.4); Carbon Dioxide 27 mmol/L (20-31)
[2024-04-10 14:49] LABS: BUN/Creatinine Ratio 14.8 (10.0-20.0); Blood Urea Nitrogen 16 mg/dL (9-23); Glucose 91 mg/dL (74-106)
--- NOTE | 2024-04-10 15:39 | DVHHP2 ---
History of Present Illness Reason for Visit: Back pain History of Present Illness Mary Ellen Bergeron is a 78-year-old female with past medial history of diabetes, hypertension, hyperlipidemia, arthritis, chronic pain, hypothyroidism, and lymphedema who comes in with complaints of back pain. Patient states the pain started about 5 days ago and it radiates down her left leg. She follows with her primary car provider who she states had her do MRI scans last year. She also follows with rheumatology, but could not get an appointment until May so she came to the ER. She states the pain is like a spasm that tightens and releases and is intermittent. Cardiovascular: HTN, hyperipidemia Musculoskeletal: Chronic low back pain, Osteoarthritis Endocrine: Diabetes, Hypothyroidism Past Surgical History: Cholecystectomy, Other (right shoulder), Tubal Ligation Smoke: No ALCOHOL: none Drugs: None Lives: Alone Domestic Violence: Neg Review of Systems Constitutional: No: Fever, Chills, Sweats, Weakness, Malaise, Other Eyes: No: Pain, Vision change, Conjunctivae inflammation, Eyelid inflammation, Other, Redness ENT: No: Ear pain, Ear discharge, Nose pain, Nose discharge, Nose congestion, Mouth pain, Mouth swelling, Throat pain, Throat swelling, Other Respiratory: No: Cough, Dry, Shortness of breath, SOB with excertion, Wheezing, Hemoptysis, Pleuritic Pain, Sputum, Wheezing, Other Cardiovascular: No: Chest Pain, Palpitations, Orthopnea, Paroxysmal Noc. Dyspnea, Edema, Lt Headedness, Other Gastrointestinal: No: Nausea, Vomiting, Abdominal Pain, Diarrhea, Constipation, Melena, Hematochezia, Other Genitourinary: No Dysuria, No Frequency, No Incontinence, No Hematuria, No Retention, No Other Musculoskeletal: back pain (radiates down her left leg); No: other, neck pain, shoulder pain, arm pain, hand pain, leg pain, foot pain Skin: No: Rash, Lesions, Jaundice, Bruising, Other Neurological: No: Weakness, Numbness, Incoordination, Change in speech, Confusion, Seizures, Other Allergies: Coded Allergies: Codeine (Verified Allergy, Unknown, 10/07/21) Exam Vital Signs Vital Signs Date Time Temp Pulse Resp B/P (MAP) Pulse Ox O2 Delivery O2 Flow Rate FiO2 04/10/24 13:31 98.7 100 18 149/81 (103) 95 98.7 04/10/24 10:55 Room Air* 0 21 General Appearance: Alert, Oriented X3, Cooperative, mild distress HEENT: Atraumatic, PERRLA, Mucous membr. moist/pink Respiratory: Clear to auscultation, Normal air movement Cardiovascular: Regular rate, Normal S1, Normal S2, No murmurs Abdominal: Normal bowel sounds, Soft, No tenderness Extremities: No clubbing, No cyanosis, No edema, Normal pulses Skin: No rashes, No breakdown, No significant lesion Neuro: Normal gait, Normal speech, Strength at 5/5 X4 ext, Normal tone Psych/Mental Status: Mental status NL, Mood NL Labs/Xrays Labs Test 04/10/24 13:46 04/10/24 11:25 Range/Units White Blood Count 7.1 4.4-10.8 10^3/uL Red Blood Count 3.38 L 4.0-5.20 10^6/uL Hemoglobin 11.0 L 12.2-16.2 g/dL Hematocrit 32.8 L 36.0-46.0 % Mean Corpuscular Volume 97.2 80.0-100.0 fL Mean Corpuscular Hemoglobin 32.6 H 28.0-32.0 pg Mean Corpuscular Hemoglobin Concent 33.5 32.0-36.0 g/dL Red Cell Distribution Width 13.9 11.8-14.3 % Platelet Count 357 140-450 10^3/uL Mean Platelet Volume 7.5 6.9-10.8 fL Neutrophils (%) (Auto) 47.6 37.0-80.0 % Lymphocytes (%) (Auto) 39.7 10.0-50.0 % Monocytes (%) (Auto) 7.1 0.0-12.0 % Eosinophils (%) (Auto) 4.8 0.0-7.0 % Basophils (%) (Auto) 0.8 0.0-2.0 % Neutrophils # (Auto) 3.4 1.6-8.6 10 ^3/uL Lymphocytes # (Auto) 2.8 0.4-5.4 10 ^3/uL Monocytes # (Auto) 0.5 0-1.3 10 ^3/uL Eosinophils # (Auto) 0.3 0-0.8 10 ^3/uL Basophils # (Auto) 0.1 0-0.2 10 ^3/uL Nucleated Red Blood Cells 0.1 % Sodium Level 136 136-145 mmol/L Potassium Level 4.7 3.5-5.1 mmol/L Chloride Level 103 98-107 mmol/L Carbon Dioxide Level 27 20-31 mmol/L Anion Gap 6 5-15 Blood Urea Nitrogen 16 9-23 mg/dL Creatinine 1.08 H 0.550-1.02 mg/dL Glomerular Filtration Rate Calc 53 >90 mL/min BUN/Creatinine Ratio 14.8 10.0-20.0 Serum Glucose 91 74-106 mg/dL Calcium Level 10.1 8.7-10.4 mg/dL Urine Color Light-yellow Yellow Urine Clarity Turbid H Clear Urine pH 5.5 5.0-9.0 Urine Specific [place] 1.012 1.001-1.035 Urine Protein Negative Negative Urine Ketones Negative Negative Urine Blood Negative Negative /uL Urine Nitrite Negative Negative Urine Bilirubin Negative Negative Urine Urobilinogen Normal Negative mg/dL Urine Leukocyte Esterase 1+ Negative /uL Urine RBC 1 0 - 4 /hpf Urine Microscopic WBC < 1 0-5 /HPF Urine Squamous Epithelial Cells Few <5 /hpf Urine Bacteria Few H None Seen /hpf Urine Glucose Normal Normal mg/dL INDICATION: mid back pain spasms FINDINGS: There is no evidence of fracture, subluxation and/or dislocation. Degenerative changes of the spine. The alignment is anatomical. The paravertebral soft tissues were unremarkable. IMPRESSION: 1. Of the visualized spine, there is no evidence for fracture or subluxation. Assessment/Plan Assessment/Plan Assessment: Thoracic back pain, Hypertension, Hyperlipidemia, Diabetes, Chronic pain, Plan: Admit to Med-Surg, Spine consult, Pain management, Home medications reconciled, Accu checks Q AC&HS with sliding scale, Plan discussed with: Patient Date of Service: Apr 10, 2024 Billing Provider: CELESTINE ESCUDERO Common Visit Codes: [id number] INP/OBS CARE (MOD) CELESTINE ESCUDERO Apr 10, 2024 15:39
[2024-04-10] MEDS ORDERED: CYCLOBENZAPRINE HCL 10 MG TAB PO PRN (15:45)
[2024-04-10] MEDS ORDERED: ONDANSETRON HCL 4 MG/2 ML VIAL IV PRN (15:45)
[2024-04-10] MEDS ORDERED: ACETAMINOPHEN 325 MG TAB PO PRN (15:45)
--- NOTE | 2024-04-10 18:00 | ECG ---
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
[2024-04-10] MEDS: HYDROcodone-ACET 5/325MG TAB PO PRN (18:04)
[2024-04-10] MEDS ORDERED: GAB100C PO (18:06)
[2024-04-10] MEDS ORDERED: METF-370 PO (18:06)
[2024-04-10] MEDS ORDERED: ASPI81CH49 PO (18:06)
[2024-04-10] MEDS ORDERED: DEXTROSE (50%) 50ML SYRG IV PRN (18:15)
[2024-04-10 21:00] VITALS: BP 135/54; PULSE 80; RESP 17; TEMP 97.2; O2SAT 93
[2024-04-10 21:51] VITALS: BP 135/54; PULSE 80; RESP 17; TEMP 97.2; O2SAT 93
[2024-04-10] MEDS: InsuLIN REG 1unit/0.01ml Soln (100units/ml) SC SCH (22:00)
[2024-04-11] VITALS (9 sets, daily range): BP systolic 125–157; BP diastolic 47–84; PULSE 84–91; RESP 18–20; TEMP 97.2–98; O2SAT 92–97
[2024-04-11] MEDS: SODIUM CHLOR 0.9% PF (SALINE LOCK) 10ML VIAL/SYR IV SCH (00:18)
[2024-04-11] MEDS: ACCU-CHEK COMFORT CURVE STRIP VI SCH (00:19)
[2024-04-11] MEDS: ATORVASTATIN 20 MG TAB PO SCH (00:22)
[2024-04-11] MEDS: InsuLIN REG 1unit/0.01ml Soln (100units/ml) SC SCH (06:20)
[2024-04-11 07:01] LABS: Basophils # (auto) 0.1 10 ^3/uL (0-0.2); Eosinophils # (auto) 0.4 10 ^3/uL (0-0.8); Eosinophils % (auto) 6.3 % (0.0-7.0); Hematocrit 31.6 % (36.0-46.0); Hemoglobin 10.6 g/dL (12.2-16.2); Lymphocytes # (auto) 2.9 10 ^3/uL (0.4-5.4); Lymphocytes % (auto) 47.8 % (10.0-50.0); Mean Corpuscular Hemoglobin 32.6 pg (28.0-32.0); Mean Corpuscular Hgb Conc. 33.5 g/dL (32.0-36.0); Mean Corpuscular Volume 97.4 fL (80.0-100.0); Monocytes # (auto) 0.6 10 ^3/uL (0-1.3); Monocytes % (auto) 9.6 % (0.0-12.0); Neutrophils # (auto) 2.1 10 ^3/uL (1.6-8.6); Neutrophils % (auto) 35.3 % (37.0-80.0); Nucleated Red Blood Cells % 0.2 %; Platelet Count (auto) 310 10^3/uL (140-450); Red Blood Cells 3.25 10^6/uL (4.0-5.20); Red Cell Distribution Width 13.8 % (11.8-14.3)
[2024-04-11 07:31] LABS: Alanine Aminotransferase 13 U/L (7-40); Alkaline Phosphatase 70 U/L (46-116); Anion Gap 6 (5-15); Aspartate Aminotransferase 14 U/L (13-40); Bilirubin, Total 0.3 mg/dL (0.2-1.0); Blood Urea Nitrogen 19 mg/dL (9-23); Calcium 9.7 mg/dL (8.7-10.4); Carbon Dioxide 27 mmol/L (20-31); Chloride 103 mmol/L (98-107); Glucose 86 mg/dL (74-106); Potassium 3.7 mmol/L (3.5-5.1); Sodium 136 mmol/L (136-145)
[2024-04-11 07:32] LABS: Total Protein 8.7 g/dL (5.7-8.2)
[2024-04-11] MEDS: ASPirin 81 mg TAB PO SCH (09:20)
[2024-04-11] MEDS: LIDOCAINE 5% TOPICAL PATCH TOP SCH (09:20)
[2024-04-11] MEDS: GABAPENTIN 100 MG CAP PO SCH (09:20)
[2024-04-11] MEDS: LOSARTAN POTASSIUM 50 MG TAB PO SCH (09:20)
--- NOTE | 2024-04-11 12:30 | DVHPN2 ---
Reviewed: Care Plan, H&P, Labs, Medications, Previous Orders, Radiology Changes from previous H/P or p: No Changes Eyes: No Pain, No Vision change, No Conjunctivae inflammation, No Eyelid inflammation, No Other, No Redness ENT: No Ear pain, No Ear discharge, No Nose pain, No Nose discharge, No Nose congestion, No Mouth pain, No Mouth swelling, No Throat pain, No Throat swelling, No Other Cardiovascular: No Chest Pain, No Palpitations, No Orthopnea, No Paroxysmal Noc. Dyspnea, No Edema, No Lt Headedness, No Other Respiratory: No Cough, No Dry, No Shortness of breath, No SOB with excertion, No Wheezing, No Hemoptysis, No Pleuritic Pain, No Sputum, No Other Gastrointestinal: No Nausea, No Vomiting, No Abdominal Pain, No Diarrhea, No Constipation, No Melena, No Hematochezia, No Other Genitourinary: No Dysuria, No Frequency, No Incontinence, No Hematuria, No Retention, No Other Musculoskeletal: No other, No neck pain, No shoulder pain, No arm pain; back pain (radiates down her left leg); No hand pain, No leg pain, No foot pain Skin: No Rash, No Lesions, No Jaundice, No Bruising, No Other Objective Vitals Vital Signs Date Time Temp Pulse Resp B/P (MAP) Pulse Ox O2 Delivery O2 Flow Rate FiO2 04/11/24 09:20 127/63 04/11/24 08:56 97.4 84 20 94 97.4 04/11/24 08:00 Room Air* 0 21 Intake/Output Intake and Output 04/11/24 07:00 Intake Total 350 ml Balance 350 ml Intake Oral 350 ml # Voids 4 Medications Current Medications Medications Dose Ordered Sig/Alondra Route Start Time Stop Time Status Last Admin Dose Admin Sodium Chloride 10 ml Q8HR IV 04/10/24 22:00 04/11/24 06:04 10 ML Acetaminophen/ Hydrocodone Bitart 1 tab Q4HP PRN PO 04/10/24 15:45 04/11/24 06:04 1 TAB Ondansetron HCl 4 mg Q4HP PRN IV 04/10/24 15:45 Docusate Sodium 100 mg BIDPRN PRN PO 04/10/24 15:45 Acetaminophen 650 mg Q6HP PRN PO 04/10/24 15:45 Cyclobenzaprine HCl 5 mg Q8HPRN PRN PO 04/10/24 15:45 Lidocaine 1 patch DAILY TOP 04/11/24 10:00 04/11/24 09:20 1 PATCH Losartan Potassium 50 mg DAILY PO 04/11/24 10:00 04/11/24 09:20 50 MG Atorvastatin Calcium 40 mg HS PO 04/10/24 22:00 04/11/24 00:22 40 MG Gabapentin 100 mg DAILY PO 04/11/24 10:00 04/11/24 09:20 100 MG Aspirin 81 mg DAILY PO 04/11/24 10:00 04/11/24 09:20 81 MG Diagnostic Test (Pha) 1 strip ACHS 04/10/24 22:00 04/11/24 11:47 1 STRIP Insulin Human Regular HS SC 04/10/24 22:00 Insulin Human Regular AC SC 04/11/24 07:00 Dextrose 50 ml UD PRN IV 04/10/24 18:15 Laboratory Results Laboratory Tests 04/11/24 06:19 Chemistry Test 04/10/24 13:46 04/11/24 06:19 Calcium Level 10.1 mg/dL (8.7-10.4) 9.7 mg/dL (8.7-10.4) Albumin 4.0 g/dL (3.2-4.8) Total Protein 8.7 g/dL (5.7-8.2) H LFT Test 04/11/24 06:19 Alanine Aminotransferase (ALT) 13 U/L (7-40) Alkaline Phosphatase 70 U/L (46-116) Aspartate Amino Transferase (AST) 14 U/L (13-40) Total Bilirubin 0.3 mg/dL (0.2-1.0) Urinalysis Test 04/10/24 11:25 Urine Color Light-yellow (Yellow) Urine Clarity Turbid (Clear) H Urine pH 5.5 (5.0-9.0) Urine Specific [place] 1.012 (1.001-1.035) Urine Protein Negative (Negative) Urine Ketones Negative (Negative) Urine Blood Negative /uL (Negative) Urine Nitrite Negative (Negative) Urine Bilirubin Negative (Negative) Urine Urobilinogen Normal mg/dL (Negative) Urine Leukocyte Esterase 1+ /uL (Negative) Urine RBC 1 /hpf (0 - 4) Urine Microscopic WBC < 1 /HPF (0-5) Urine Squamous Epithelial Cells Few /hpf (<5) Urine Bacteria Few /hpf (None Seen) H Urine Glucose Normal mg/dL (Normal) Labs and/or images reviewed: Labs reviewed by me, Image(s) reviewed by me Assessment/Plan Assessment/Plan Acute exacerbation of chronic mid back pain T-spine x-ray negative for any fracture or acute pathology: Continue [place] Flexeril and lidocaine patch Hypercholesterolemia: Lipitor Hypotension: Cozaar Hypothyroidism Osteoarthritis patient follows with sap pi architect 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
--- NOTE | 2024-04-11 13:43 | DVH ---
EXAM: CT THORACIC SPINE WO CONTRAS, CT LS SPINE WO CONTRAST INDICATION: Back pain EXAM DATE: 04/11/2024 01:08 PM COMPARISON: None TECHNIQUE: Multiple axial CT images of the thoracic and lumbar spine were obtained using bone algorit hm. Axial and coronal reformatting was done. Bone and soft tissue windows were reviewed. Radiation Dose Information: Thoracic CT Dose: CTDI volume is 31.22 mGy. Dose-length product is 1234.41 mGy*cm Lumbar CT Dose: CTDI volume is 33.8 mGy. Dose-length product is 929.33 mGy*cm Findings: There is no evidence of an acute fracture or spondylolisthesis. The vertebral body heights are well-m aintained. Mild spondylosis of the thoracolumbar spine. No spinal canal stenosis. There is a normal thoracic kyphosis and lumbar lordosis. The paraspinal soft tissues appear within no rmal limits. Cholecystectomy. C7-T1: Normal T1-T2: Normal T2-T3: Normal T3-T4: Normal T4-T5: Normal T5-T6: Normal T6-T7: Normal T7-T8: Normal T8-T9: Normal T9-T10: Moderate degenerative disc disease T10-T11: Moderate degenerative disc disease T11-T12: Moderate degenerative disc disease T12-L1: Normal L1-L2: Normal L2-L3: Moderate degenerative disc disease L3-L4: Moderate degenerative disc disease L4-L5: Normal L5-S1: Normal Impression: 1. No evidence of an acute fracture. 2. Mild degenerative changes of the thoracolumbar spine with multilevel moderate degenerative disc di sease.
--- NOTE | 2024-04-11 17:20 | DVHINCON2 ---
Consultation - Spinal Surgery Date Seen: Apr 11, 2024 Referring Physician Referring Physician Attending Doctor: Earl Higgins MD Reason for Consultation Reason for Visit: Back pain History of Present Illness History of Present Illness History of Present Illness Mary Ellen Bergeron is a 78-year-old female with past medial history of diabetes, hypertension, hyperlipidemia, arthritis, chronic pain, hypothyroidism, and lymphedema who comes in with complaints of back pain. Patient states the pain started about 5 days ago and it radiates down her left leg. She follows with her primary car provider who she states had her do MRI scans last year. She also follows with rheumatology, but could not get an appointment until May so she came to the ER. She states the pain is like a spasm that tightens and releases and is intermittent. Spine surgery H and P. patient is complaining of low back pain that does shoot down her lower legs. She also has mid back pain that makes it difficult for her to get comfortable when she is trying to relax. Patient intermittently takes Flexeril 10 mg but it is inconsistent. Patient states that she has complaints of neck pain and headaches that have been going on and off for years. She has no complaints of any low leg weakness or weakness to the bilateral upper extremities. Past Medical/Surgical History Past Medical/Surgical History Cardiovascular: HTN, hyperipidemia Musculoskeletal: Chronic low back pain, Osteoarthritis Endocrine: Diabetes, Hypothyroidism Past Surgical History: Cholecystectomy, Other (right shoulder), Tubal Ligation Family and Social History Family and Social History Smoke: No ALCOHOL: none Drugs: None Lives: Alone Domestic Violence: Neg Allergies and medications Allergies: Coded Allergies: Codeine (Verified Allergy, Unknown, 10/07/21) Home Meds Active Scripts Dicyclomine Hcl (BENTYL CAPSULE) 10 Mg Cp, 1 CAP PO Q6HPRN, #30 CAP 0 Refills Prov:GENNARO RIOJAS 08/18/23 Pantoprazole Sodium Sesquihydr (Protonix) 40 Mg Tab, 40 MG PO DAILY, #30 TAB 2 Refills Prov:ERENDIRA CHRISTOPHER MD 07/12/23 Sucralfate (Sucralfate) 1 Gm Tab, 1 GM PO QIDACHS for 30 Days, #120 TAB 2 Refills Prov:ERENDIRA CHRISTOPHER MD 07/12/23 Tramadol Hcl (Ultram) 50 Mg Tab, 1 TAB PO BID, #20 TAB Prov:ADA SANDOVAL ROCAEL 01/06/22 Reported Medications Metformin Hydrochloride (Metformin Hcl) 500 Mg Tab, 0.5 TAB PO BID 04/10/24 Gabapentin (Gabapentin) 100 Mg Cap, 1 TAB PO DAILY 04/10/24 Aspirin (Aspirin) 81 Mg Chw, 1 TAB PO DAILY 04/10/24 Lidocaine (Lidocaine) 5 % Pad, 1 PATCH TOP DAILY 07/12/23 Atorvastatin Calcium (ATORVASTATIN CALCIUM) 40 Mg Tab, 1 TAB PO DAILY 07/11/23 Losartan Potassium (Losartan Potassium) 50 Mg Tab, 1 TAB PO DAILY 07/11/23 Review of systems Review of Systems: HEENT:Normal, CVS:Normal, RESPIRATORY:Normal, GI:Normal, :Normal, MSK:Normal, NEURO:Normal Examination Vital signs Imagining: PROCEDURE(s): LS2CT - LS SPINE WO CONTRAST REASON: Back pain ORDER NUMBER(s): [id number], ACCESSION NUMBER(s): [id number] EXAM: CT THORACIC SPINE WO CONTRAS, CT LS SPINE WO CONTRAST INDICATION: Back pain EXAM DATE: 04/11/2024 01:08 PM COMPARISON: None TECHNIQUE: Multiple axial CT images of the thoracic and lumbar spine were obtained using bone algorithm. Axial and coronal reformatting was done. Bone and soft tissue windows were reviewed. Radiation Dose Information: Thoracic CT Dose: CTDI volume is 31.22 mGy. Dose-length product is 1234.41 mGy*cm Lumbar CT Dose: CTDI volume is 33.8 mGy. Dose-length product is 929.33 mGy*cm Findings: There is no evidence of an acute fracture or spondylolisthesis. The vertebral body heights are well-maintained. Mild spondylosis of the thoracolumbar spine. No spinal canal stenosis. There is a normal thoracic kyphosis and lumbar lordosis. The paraspinal soft tissues appear within normal limits. Cholecystectomy. C7-T1: Normal T1-T2: Normal T2-T3: Normal T3-T4: Normal T4-T5: Normal T5-T6: Normal T6-T7: Normal T7-T8: Normal T8-T9: Normal T9-T10: Moderate degenerative disc disease T10-T11: Moderate degenerative disc disease T11-T12: Moderate degenerative disc disease T12-L1: Normal L1-L2: Normal L2-L3: Moderate degenerative disc disease L3-L4: Moderate degenerative disc disease L4-L5: Normal L5-S1: Normal Impression: 1. No evidence of an acute fracture. 2. Mild degenerative changes of the thoracolumbar spine with multilevel moderate degenerative disc disease. Vital Signs Date Time Temp Pulse Resp B/P (MAP) Pulse Ox O2 Delivery O2 Flow Rate FiO2 04/11/24 16:53 97.5 85 18 125/47 (73) 93 97.5 04/11/24 08:00 Room Air* 0 21 Medications Current Medications Medications (Trade) Dose Ordered Sig/Alondra Route PRN Reason Start Time Stop Time Status Last Admin Sodium Chloride (Saline Lock Ns) 10 ml Q8HR IV 04/10/24 22:00 04/11/24 14:00 Lidocaine (Lidoderm 5% Topical Patch) 1 patch DAILY TOP 04/11/24 10:00 04/11/24 09:20 Losartan Potassium (Cozaar Tablet) 50 mg DAILY PO 04/11/24 10:00 04/11/24 09:20 Atorvastatin Calcium (Lipitor) 40 mg HS PO 04/10/24 22:00 04/11/24 00:22 Gabapentin (Neurontin Capsule) 100 mg DAILY PO 04/11/24 10:00 04/11/24 09:20 Aspirin 81 mg DAILY PO 04/11/24 10:00 04/11/24 09:20 Diagnostic Test (Pha) (Accu-Chek Comfort Curve T) 1 strip ACHS 04/10/24 22:00 04/11/24 16:31 Insulin Human Regular (InsuLIN R) HS SC 04/10/24 22:00 Insulin Human Regular (InsuLIN R) AC SC 04/11/24 07:00 Dextrose 50 ml UD PRN IV Blood Sugar LESS THAN 60 04/10/24 18:15 Laboratory Labs Test 04/11/24 16:18 04/11/24 06:19 04/10/24 11:25 Range/Units POC Glucose 117 H 70-106 mg/dl White Blood Count 6.0 4.4-10.8 10^3/uL Red Blood Count 3.25 L 4.0-5.20 10^6/uL Hemoglobin 10.6 L 12.2-16.2 g/dL Hematocrit 31.6 L 36.0-46.0 % Mean Corpuscular Volume 97.4 80.0-100.0 fL Mean Corpuscular Hemoglobin 32.6 H 28.0-32.0 pg Mean Corpuscular Hemoglobin Concent 33.5 32.0-36.0 g/dL Red Cell Distribution Width 13.8 11.8-14.3 % Platelet Count 310 140-450 10^3/uL Mean Platelet Volume 7.3 6.9-10.8 fL Neutrophils (%) (Auto) 35.3 L 37.0-80.0 % Lymphocytes (%) (Auto) 47.8 10.0-50.0 % Monocytes (%) (Auto) 9.6 0.0-12.0 % Eosinophils (%) (Auto) 6.3 0.0-7.0 % Basophils (%) (Auto) 1.0 0.0-2.0 % Neutrophils # (Auto) 2.1 1.6-8.6 10 ^3/uL Lymphocytes # (Auto) 2.9 0.4-5.4 10 ^3/uL Monocytes # (Auto) 0.6 0-1.3 10 ^3/uL Eosinophils # (Auto) 0.4 0-0.8 10 ^3/uL Basophils # (Auto) 0.1 0-0.2 10 ^3/uL Nucleated Red Blood Cells 0.2 % Sodium Level 136 136-145 mmol/L Potassium Level 3.7 3.5-5.1 mmol/L Chloride Level 103 98-107 mmol/L Carbon Dioxide Level 27 20-31 mmol/L Anion Gap 6 5-15 Blood Urea Nitrogen 19 9-23 mg/dL Creatinine 1.12 H 0.550-1.02 mg/dL Glomerular Filtration Rate Calc 51 >90 mL/min BUN/Creatinine Ratio 17.0 10.0-20.0 Serum Glucose 86 74-106 mg/dL Calcium Level 9.7 8.7-10.4 mg/dL Total Bilirubin 0.3 0.2-1.0 mg/dL Aspartate Amino Transferase (AST) 14 13-40 U/L Alanine Aminotransferase (ALT) 13 7-40 U/L Alkaline Phosphatase 70 46-116 U/L Total Protein 8.7 H 5.7-8.2 g/dL Albumin 4.0 3.2-4.8 g/dL Urine Color Light-yellow Yellow Urine Clarity Turbid H Clear Urine pH 5.5 5.0-9.0 Urine Specific [place] 1.012 1.001-1.035 Urine Protein Negative Negative Urine Ketones Negative Negative Urine Blood Negative Negative /uL Urine Nitrite Negative Negative Urine Bilirubin Negative Negative Urine Urobilinogen Normal Negative mg/dL Urine Leukocyte Esterase 1+ Negative /uL Urine RBC 1 0 - 4 /hpf Urine Microscopic WBC < 1 0-5 /HPF Urine Squamous Epithelial Cells Few <5 /hpf Urine Bacteria Few H None Seen /hpf Urine Glucose Normal Normal mg/dL Examination: GENERAL:Normal, HEENT:Normal, NECK:Abnormal (Patient states she has neck pain and headaches), LUNGS:Normal, CVS:Normal, ABDOMEN:Normal, MSK:Normal (No complaints of leg weakness or arm weakness), SKIN:Normal, NEURO:Normal, :Normal Problem List/Assessment/Plan Problems: (1) Lumbar back pain (2) Thoracic back pain (3) DDD (degenerative disc disease), lumbar Assessment and Plan Mild degenerative changes of the thoracolumbar spine with multilevel moderate degenerative disc disease. < this finding does not need emergent spine surgery at this time. -recommend physical therapy weight-bearing as tolerated -she can follow up with Dr. Solis as an outpatient if she continues to have discomfort or per primary care doctor for a referral if needed. Call [phone] for a appointment [id number] [place] [address], [address] [address] Continue supportive care per admitting team Muscle relaxers the patient is having muscle spasms -current flexible dose of 5 mg is ineffective, we have changed it to 10 mg every 8 hours. To be able to safely evaluated the patient can tolerate this dose while she is in the hospital before she is sent home on it. TLSO brace for comfort during ambulation Age-appropriate oral analgesics No barriers to discharge from a spine surgery perspective Call with questions Rubio Fountain [facility] Spine Surgery nurse practitioner For Dr Vee Ritter Patient was examined, chart reviewed, labs evaluated, and diagnostic studies and findings analyzed. Case was discussed with Dr. Vincent Ritter who formulated the plan of care. This medical document was created using an electronic medical record system with [id number] system. Although this document has been carefully reviewed, there might still be some phonetic and typographical errors. These areas are purely typographical due to imperfections of the software programs, and do not reflect any compromise in the patient's medical care. Plan discussed with Plan discussed with: Patient, Daughter, Other (Family members) KELLEY FOUNTAIN NP Apr 11, 2024 17:20
[2024-04-11] MEDS: CYCLOBENZAPRINE HCL 10 MG TAB PO SCH (21:26)
[2024-04-12 01:00] VITALS: BP 125/68; PULSE 86; RESP 20; TEMP 98; O2SAT 92
[2024-04-12 01:38] VITALS: BP 125/68; PULSE 86; RESP 20; TEMP 98; O2SAT 92
[2024-04-12 05:00] VITALS: BP 129/87; PULSE 96; RESP 16; TEMP 97.8; O2SAT 93
[2024-04-12 08:00] VITALS: PULSE 101; RESP 18; O2SAT 91
[2024-04-12 08:08] VITALS: BP 120/48; PULSE 101; RESP 18; TEMP 98.2; O2SAT 91
[2024-04-12] MEDS: DOCUSATE SOD 100 MG CAP PO PRN (10:43)
--- NOTE | 2024-04-12 10:43 | DVHPN2 ---
Reviewed: Care Plan, H&P, Labs, Medications, Previous Orders, Radiology Changes from previous H/P or p: No Changes Eyes: No Pain, No Vision change, No Conjunctivae inflammation, No Eyelid inflammation, No Other, No Redness ENT: No Ear pain, No Ear discharge, No Nose pain, No Nose discharge, No Nose congestion, No Mouth pain, No Mouth swelling, No Throat pain, No Throat swelling, No Other Cardiovascular: No Chest Pain, No Palpitations, No Orthopnea, No Paroxysmal Noc. Dyspnea, No Edema, No Lt Headedness, No Other Respiratory: No Cough, No Dry, No Shortness of breath, No SOB with excertion, No Wheezing, No Hemoptysis, No Pleuritic Pain, No Sputum, No Other Gastrointestinal: No Nausea, No Vomiting, No Abdominal Pain, No Diarrhea, No Constipation, No Melena, No Hematochezia, No Other Genitourinary: No Dysuria, No Frequency, No Incontinence, No Hematuria, No Retention, No Other Musculoskeletal: No other, No neck pain, No shoulder pain, No arm pain; back pain (radiates down her left leg); No hand pain, No leg pain, No foot pain Skin: No Rash, No Lesions, No Jaundice, No Bruising, No Other Objective Vitals Vital Signs Date Time Temp Pulse Resp B/P (MAP) Pulse Ox O2 Delivery O2 Flow Rate FiO2 04/12/24 08:35 120/48 04/12/24 08:08 98.2 101 18 91 98.2 04/11/24 20:00 Room Air* 0 21 Intake/Output Intake and Output 04/12/24 07:00 Intake Total 1000 ml Balance 1000 ml Intake Oral 1000 ml # Voids 12 Medications Current Medications Medications Dose Ordered Sig/Alondra Route Start Time Stop Time Status Last Admin Dose Admin Sodium Chloride 10 ml Q8HR IV 04/10/24 22:00 04/12/24 06:39 10 ML Acetaminophen/ Hydrocodone Bitart 1 tab Q4HP PRN PO 04/10/24 15:45 04/12/24 08:46 1 TAB Ondansetron HCl 4 mg Q4HP PRN IV 04/10/24 15:45 Docusate Sodium 100 mg BIDPRN PRN PO 04/10/24 15:45 Acetaminophen 650 mg Q6HP PRN PO 04/10/24 15:45 Lidocaine 1 patch DAILY TOP 04/11/24 10:00 04/12/24 08:34 1 PATCH Losartan Potassium 50 mg DAILY PO 04/11/24 10:00 04/12/24 08:35 50 MG Atorvastatin Calcium 40 mg HS PO 04/10/24 22:00 04/11/24 21:26 40 MG Gabapentin 100 mg DAILY PO 04/11/24 10:00 04/12/24 08:35 100 MG Aspirin 81 mg DAILY PO 04/11/24 10:00 04/12/24 08:35 81 MG Diagnostic Test (Pha) 1 strip ACHS 04/10/24 22:00 04/11/24 21:28 1 STRIP Insulin Human Regular HS SC 04/10/24 22:00 Insulin Human Regular AC SC 04/11/24 07:00 Dextrose 50 ml UD PRN IV 04/10/24 18:15 Cyclobenzaprine HCl 10 mg TID PO 04/11/24 22:00 04/12/24 06:38 10 MG Laboratory Results Laboratory Tests 04/11/24 06:19 Urinalysis Test 04/10/24 11:25 Urine Color Light-yellow (Yellow) Urine Clarity Turbid (Clear) H Urine pH 5.5 (5.0-9.0) Urine Specific [place] 1.012 (1.001-1.035) Urine Protein Negative (Negative) Urine Ketones Negative (Negative) Urine Blood Negative /uL (Negative) Urine Nitrite Negative (Negative) Urine Bilirubin Negative (Negative) Urine Urobilinogen Normal mg/dL (Negative) Urine Leukocyte Esterase 1+ /uL (Negative) Urine RBC 1 /hpf (0 - 4) Urine Microscopic WBC < 1 /HPF (0-5) Urine Squamous Epithelial Cells Few /hpf (<5) Urine Bacteria Few /hpf (None Seen) H Urine Glucose Normal mg/dL (Normal) Labs and/or images reviewed: Labs reviewed by me, Image(s) reviewed by me Assessment/Plan Assessment/Plan Acute exacerbation of chronic mid back pain T-spine x-ray negative for any fracture or acute pathology: Continue [place] Flexeril and lidocaine patch, CT T- spine shows no fracture DJD changes, CT L-spine shows no fracture DJD changes Hypercholesterolemia: Lipitor Hypotension: Cozaar Hypothyroidism Osteoarthritis patient follows with senior site manager Peripheral neuropathy: Gabapentin Time spent 55 minutes Plan discussed with: Patient My Orders Orders - SAVANAH CHAO MD Procedure Category Date Status Time Thoracic Spine Wo CT 04/11/24 Resulted Contras 12:49 Ls Spine Wo Contrast CT 04/11/24 Resulted 12:49 Date of Service: Apr 12, 2024 Billing Provider: SAVANAH CHAO MD Common Visit Codes: [id number] INP/OBS CARE(HIGH) SAVANAH CHAO MD Apr 12, 2024 10:43
[2024-04-12] MEDS ORDERED: HYDR-4798 PO (10:47)
[2024-04-12] MEDS ORDERED: METH-1182 PO (10:47)
--- NOTE | 2024-04-12 10:52 | DVHDS2 ---
Discharge Summary Date of Admission Apr 10, 2024 at 15:36 Date of Discharge: Apr 12, 2024 Admitting Diagnosis Exacerbation of chronic back pain Wounds: None Labs/Diagnostic Data: Laboratory Results Test 04/11/24 21:22 04/11/24 06:19 04/10/24 11:25 POC Glucose 131 mg/dl (70-106) White Blood Count 6.0 10^3/uL (4.4-10.8) Red Blood Count 3.25 10^6/uL (4.0-5.20) Hemoglobin 10.6 g/dL (12.2-16.2) Hematocrit 31.6 % (36.0-46.0) Mean Corpuscular Volume 97.4 fL (80.0-100.0) Mean Corpuscular Hemoglobin 32.6 pg (28.0-32.0) Mean Corpuscular Hemoglobin Concent 33.5 g/dL (32.0-36.0) Red Cell Distribution Width 13.8 % (11.8-14.3) Platelet Count 310 10^3/uL (140-450) Mean Platelet Volume 7.3 fL (6.9-10.8) Neutrophils (%) (Auto) 35.3 % (37.0-80.0) Lymphocytes (%) (Auto) 47.8 % (10.0-50.0) Monocytes (%) (Auto) 9.6 % (0.0-12.0) Eosinophils (%) (Auto) 6.3 % (0.0-7.0) Basophils (%) (Auto) 1.0 % (0.0-2.0) Neutrophils # (Auto) 2.1 10 ^3/uL (1.6-8.6) Lymphocytes # (Auto) 2.9 10 ^3/uL (0.4-5.4) Monocytes # (Auto) 0.6 10 ^3/uL (0-1.3) Eosinophils # (Auto) 0.4 10 ^3/uL (0-0.8) Basophils # (Auto) 0.1 10 ^3/uL (0-0.2) Nucleated Red Blood Cells 0.2 % Sodium Level 136 mmol/L (136-145) Potassium Level 3.7 mmol/L (3.5-5.1) Chloride Level 103 mmol/L (98-107) Carbon Dioxide Level 27 mmol/L (20-31) Anion Gap 6 (5-15) Blood Urea Nitrogen 19 mg/dL (9-23) Creatinine 1.12 mg/dL (0.550-1.02) Glomerular Filtration Rate Calc 51 mL/min (>90) BUN/Creatinine Ratio 17.0 (10.0-20.0) Serum Glucose 86 mg/dL (74-106) Calcium Level 9.7 mg/dL (8.7-10.4) Total Bilirubin 0.3 mg/dL (0.2-1.0) Aspartate Amino Transferase (AST) 14 U/L (13-40) Alanine Aminotransferase (ALT) 13 U/L (7-40) Alkaline Phosphatase 70 U/L (46-116) Total Protein 8.7 g/dL (5.7-8.2) Albumin 4.0 g/dL (3.2-4.8) Urine Color Light-yellow (Yellow) Urine Clarity Turbid (Clear) Urine pH 5.5 (5.0-9.0) Urine Specific [place] 1.012 (1.001-1.035) Urine Protein Negative (Negative) Urine Ketones Negative (Negative) Urine Blood Negative /uL (Negative) Urine Nitrite Negative (Negative) Urine Bilirubin Negative (Negative) Urine Urobilinogen Normal mg/dL (Negative) Urine Leukocyte Esterase 1+ /uL (Negative) Urine RBC 1 /hpf (0 - 4) Urine Microscopic WBC < 1 /HPF (0-5) Urine Squamous Epithelial Cells Few /hpf (<5) Urine Bacteria Few /hpf (None Seen) Urine Glucose Normal mg/dL (Normal) Other Laboratory Tests 04/11/24 06:19 Brief Hx & Hospital Course: 78-year-old female with a history of chronic back pain came in for exacerbation of the pain no fall history of hypertension hypercholesterolemia hypothyroidism osteoarthritis. CT LS spine and CT T-spine were negative for any fracture patient was treated with the pain medications and being discharged home on [place] and Robaxin. She will follow up with the primary Dr Fried. Consults/Reason for consult None Operations or Procedures CT thoracic spine CT lumbar spine Condition at Discharge: Fair Final Diagnosis/Problems List Acute exacerbation of chronic mid back pain T-spine x-ray negative for any fracture or acute pathology: Continue [place] Flexeril and lidocaine patch, CT T-spine shows no fracture DJD changes, CT L-spine shows no fracture DJD changes Hypercholesterolemia: Lipitor Hypotension: Cozaar Hypothyroidism Osteoarthritis patient follows with medical receptionist assistant Peripheral neuropathy: Gabapentin Discharge Disposition: Home Discharge Instruct/Medications Diet: Regular Activity: Light activity Follow Up/Referral: Follow up with your primary Dr Dr. Sanabria 39 (Time taken for discharge summary 39 minutes) Discharge Statement: "Patient was advised to return to the ER or call 911 if any headaches, dizziness, shortness of breath, chest pain, abdominal pain, bleeding, fevers, or worsening of medical condition. Patient was counseled about treatment plan, medications, possible side effects, patientverbalized understanding. All questions were answered to the best of my ability. This discharge took greater then 30 minutes in planning, reviewing documentation, counseling the patient, and discussing with other team members." ASSESSMENT ASSESSMENT Hospital Course Improved Assessment Acute exacerbation of chronic mid back pain T-spine x-ray negative for any fracture or acute pathology: Continue [place] Flexeril and lidocaine patch, CT T- spine shows no fracture DJD changes, CT L-spine shows no fracture DJD changes Hypercholesterolemia: Lipitor Hypotension: Cozaar Hypothyroidism Osteoarthritis patient follows with medical receptionist assistant Peripheral neuropathy: Gabapentin Date of Service: Apr 12, 2024 Billing Provider: SAVANAH CHAO MD Common Visit Codes: [id number] DISCH DAY >30min SAVANAH CHAO MD Apr 12, 2024 10:52
[2024-04-12 12:17] VITALS: BP 107/41; PULSE 85; RESP 20; TEMP 98; O2SAT 94
== END 2024-04-12 14:56 | disposition home or self-care (01) | DRG 552 ==
LOC: ER 09:46 → OVERFLOW 15:36 → EAST 21:17
PROVIDERS: ADMIT Nurse Practitioner Family; ATTEND Family Medicine
DX: M54.89 Other dorsalgia (principal); I10 Essential (primary) hypertension; G89.29 Other chronic pain; E78.00 Pure hypercholesterolemia, unspecified; E03.9 Hypothyroidism, unspecified; E11.42 Type 2 diabetes mellitus with diabetic polyneuropathy; Z88.5 Allergy status to narcotic agent; Z90.49 Acquired absence of other specified parts of digestive tract; Z79.4 Long term (current) use of insulin; Z79.899 Other long term (current) drug therapy; M51.35 Other intervertebral disc degeneration, thoracolumbar region
CPT/HCPCS: 36415; 72070; 72128; 72131; 80048; 80053; 81001; 82962; 85025; 93005; 96372; G0378; J1885

== ENCOUNTER → 2024-05-27 | Outpatient (CLI) | payer MEDICARE, MEDICAID ==
[~2024-05-27] MED LIST changes: +ASPI81CH49 PO; +GAB100C PO; +HYDR-4798 PO; +METF-370 PO; +METH-1182 PO
[2024-05-27 12:10] LABS: Basophils # (auto) 0.1 10 ^3/uL (0-0.2); Basophils % (auto) 1.1 % (0.0-2.0); Eosinophils # (auto) 0.6 10 ^3/uL (0-0.8); Eosinophils % (auto) 10.1 % (0.0-7.0); Hematocrit 34.5 % (36.0-46.0); Hemoglobin 11.6 g/dL (12.2-16.2); Lymphocytes # (auto) 2.7 10 ^3/uL (0.4-5.4); Mean Corpuscular Hemoglobin 32.4 pg (28.0-32.0); Mean Corpuscular Hgb Conc. 33.6 g/dL (32.0-36.0); Mean Corpuscular Volume 96.3 fL (80.0-100.0); Monocytes # (auto) 0.5 10 ^3/uL (0-1.3); Monocytes % (auto) 7.6 % (0.0-12.0); Neutrophils # (auto) 2.5 10 ^3/uL (1.6-8.6); Neutrophils % (auto) 39.2 % (37.0-80.0); Platelet Count (auto) 340 10^3/uL (140-450); Red Blood Cells 3.59 10^6/uL (4.0-5.20); Red Cell Distribution Width 13.8 % (11.8-14.3); White Blood Cell 6.4 10^3/uL (4.4-10.8)
[2024-05-27 12:25] LABS: Alanine Aminotransferase 17 U/L (7-40); Alkaline Phosphatase 82 U/L (46-116); Anion Gap 3 (5-15); Aspartate Aminotransferase 16 U/L (13-40); BUN/Creatinine Ratio 11.5 (10.0-20.0); Blood Urea Nitrogen 10 mg/dL (9-23); Calcium 9.3 mg/dL (8.7-10.4); Carbon Dioxide 30 mmol/L (20-31); Chloride 104 mmol/L (98-107); Glucose 96 mg/dL (74-106); Potassium 4.5 mmol/L (3.5-5.1); Sodium 137 mmol/L (136-145)
[2024-05-27 12:26] LABS: Bilirubin, Total 0.4 mg/dL (0.2-1.0)
[2024-05-27 12:29] LABS: Total Protein 8.9 g/dL (5.7-8.2)
[2024-05-27 12:40] LABS: Triglycerides 144 mg/dL (< 150)
[2024-05-27 12:41] LABS: CRP High Sensitivity 0.39 mg/dL (<1.0); LDL Cholesterol 110 mg/dL (< 100)
[2024-05-27 12:42] LABS: Cholesterol 187 mg/dL (< 200); HDL Cholesterol 45 mg/dL (40-59)
[2024-05-27 13:30] LABS: Erythrocyte Sedimentation Rate 90 mm/hr (0-20)
== END | disposition home or self-care (01) ==
LOC: LAB 11:41
PROVIDERS: ATTEND Internal Medicine
DX: E04.1 Nontoxic single thyroid nodule (principal); J98.4 Other disorders of lung; E78.5 Hyperlipidemia, unspecified; Z79.899 Other long term (current) drug therapy
CPT/HCPCS: 36415; 80053; 80061; 83036; 85025; 85652; 86141

== ENCOUNTER → 2024-05-31 | Outpatient (CLI) | payer MEDICARE, MEDICAID ==
[2024-05-31 12:31] LABS: Ferritin 22.6 ng/mL (10-291)
[2024-05-31 12:32] LABS: Folate (Folic Acid) 10.42 ng/mL (>5.38)
== END | disposition home or self-care (01) ==
LOC: LAB 11:38
PROVIDERS: ATTEND Internal Medicine
DX: D51.9 Vitamin B12 deficiency anemia, unspecified (principal)
CPT/HCPCS: 82607; 82728; 82746

== ENCOUNTER 2024-08-13 09:03 | Outpatient (CLI) | payer MEDICARE, MEDICAID | END 2024-08-13 17:00 | disposition home or self-care (01) | LOC: Rad HDHVI 09:03 | PROVIDERS: ATTEND Internal Medicine Cardiovascular Disease | DX: I35.1 Nonrheumatic aortic (valve) insufficiency (principal); I10 Essential (primary) hypertension; I63.9 Cerebral infarction, unspecified | CPT/HCPCS: 93306 ==

== ENCOUNTER 2024-09-09 09:26 | Outpatient (CLI) | payer MEDICARE, MEDICAID ==
[~2024-09-09] VITALS: Ht 165.1 cm; Wt 90.7 kg
== END 2024-09-09 17:00 | disposition home or self-care (01) ==
LOC: Rad HDHVI 09:26
PROVIDERS: ATTEND Internal Medicine Cardiovascular Disease
DX: I49.1 Atrial premature depolarization (principal); R00.0 Tachycardia, unspecified; Z13.6 Encounter for screening for cardiovascular disorders; I11.9 Hypertensive heart disease without heart failure; E78.5 Hyperlipidemia, unspecified; I21.4 Non-ST elevation (NSTEMI) myocardial infarction; J44.9 Chronic obstructive pulmonary disease, unspecified; E11.9 Type 2 diabetes mellitus without complications; I35.8 Other nonrheumatic aortic valve disorders; I35.1 Nonrheumatic aortic (valve) insufficiency; Z88.5 Allergy status to narcotic agent; Z79.82 Long term (current) use of aspirin; Z82.49 Family history of ischemic heart disease and other diseases of the circulatory system
CPT/HCPCS: 78452; 93017; A9500; 96374

== ENCOUNTER 2024-09-24 09:18 | Outpatient (CLI) | payer MEDICARE, MEDICAID ==
[2024-09-24 10:36] LABS: Alanine Aminotransferase 20 U/L (7-40); Alkaline Phosphatase 102 U/L (46-116); Anion Gap 7 (5-15); Blood Urea Nitrogen 12 mg/dL (9-23); Calcium 9.8 mg/dL (8.7-10.4); Carbon Dioxide 28 mmol/L (20-31); Chloride 102 mmol/L (98-107); Potassium 4.2 mmol/L (3.5-5.1); Sodium 137 mmol/L (136-145); Triglycerides 106 mg/dL (< 150)
[2024-09-24 10:37] LABS: Albumin 4.1 g/dL (3.2-4.8); BUN/Creatinine Ratio 11.7 (10.0-20.0); Bilirubin, Direct 0.1 mg/dL (<0.3); Cholesterol 133 mg/dL (< 200); Glucose 107 mg/dL (74-106); HDL Cholesterol 43 mg/dL (40-59); Total Protein 9.3 g/dL (5.7-8.2)
[2024-09-24 10:38] LABS: Bilirubin, Total 0.4 mg/dL (0.2-1.0)
[2024-09-24 10:45] LABS: Hematocrit 31.5 % (36.0-46.0); Hemoglobin 10.9 g/dL (12.2-16.2); Mean Corpuscular Hemoglobin 33.3 pg (28.0-32.0); Mean Corpuscular Volume 96.6 fL (80.0-100.0); Nucleated Red Blood Cells % 0.1 %
[2024-09-24 11:29] LABS: Urine Protein, UAD Negative (Negative)
== END 2024-09-24 17:00 | disposition home or self-care (01) ==
LOC: LAB 09:18
PROVIDERS: ATTEND Internal Medicine
DX: I10 Essential (primary) hypertension (principal); E11.9 Type 2 diabetes mellitus without complications; E55.9 Vitamin D deficiency, unspecified; N39.0 Urinary tract infection, site not specified; D64.9 Anemia, unspecified; R00.2 Palpitations
CPT/HCPCS: 36415; 80048; 80061; 80076; 81003; 83036; 84439; 84443; 85025

== ENCOUNTER 2024-09-25 10:04 | Outpatient (CLI) | payer MEDICARE, MEDICAID ==
[2024-09-25 10:20] VITALS: BP 149/68; PULSE 86; RESP 20; O2SAT 95
[2024-09-25] MEDS ORDERED: IOHEXOL 350 MG/ML 100ML IJ ONE (10:24)
[2024-09-25 10:47] VITALS: BP 150/61; PULSE 89; RESP 20; O2SAT 95
--- NOTE | 2024-09-25 16:32 | DVH ---
CLINICAL HISTORY: SOB TECHNIQUE: Chest CT was performed with 100 ml of omnipaque 300 administered intravenously. This exam was performed according to our departmental dose optimization program. Up-to-date CT equipment and ra diation dose reduction techniques are utilized as appropriate. WID: COMPARISON: CT THORACIC SPINE WO CONTRAS on DOS: 04/11/24 FINDINGS: Lower Neck: There is a left thyroid nodule measuring 1.1 cm on series 2, image 7. Axilla, Mediastinum and Saritha: No axillary mediastinal, or hilar lymphadenopathy. Heart and Great Vessels: Mild cardiomegaly without pericardial effusion. Mild 3-vessel coronary arter y calcifications. Mild ectasia of the ascending thoracic aorta measuring 3.7 cm. Mild calcified plaqu e in the thoracic aorta. Borderline dilatation of the main pulmonary artery measuring 3 cm on series 2, image 29. Dilatation of the right and left main pulmonary arteries. The central pulmonary arteries are patent. Airway, Lungs and Pleura: Trachea and central airways are patent. Low lung volumes. There are linear consolidations in the bilateral lung bases with associated bronchiectasis and volume loss in the bila teral lower lobes, right middle lobe, and lingula. This is unchanged. Mosaic attenuation of the lungs . No new airspace consolidation, pleural effusion, or pneumothorax. Upper Abdomen: Prior cholecystectomy. Mild choledocho ectasia. No acute abnormality in the upper abdo men. Chest Wall and Osseous Structures: Mild thoracic spondylosis. There is mild superior endplate jocy jewell fracture appearing chronic at T12. no destructive osseous lesion. IMPRESSION: Persistent linear consolidations with mild bronchiectasis in the bilateral lung bases with associated volume loss likely atelectasis and scarring. Mild cardiomegaly and mild coronary artery calcifications. Borderline dilatation of the main pulmonary artery which can be seen in the setting of pulmonary hype rtension.
== END 2024-09-25 17:00 | disposition home or self-care (01) ==
LOC: Rad HDHVI 10:04
PROVIDERS: ATTEND Internal Medicine Cardiovascular Disease
DX: E04.1 Nontoxic single thyroid nodule (principal); I70.0 Atherosclerosis of aorta; I77.810 Thoracic aortic ectasia; I25.10 Atherosclerotic heart disease of native coronary artery without angina pectoris; I28.8 Other diseases of pulmonary vessels; M48.54XA Collapsed vertebra, not elsewhere classified, thoracic region, initial encounter for fracture; J47.9 Bronchiectasis, uncomplicated; I51.7 Cardiomegaly; M47.814 Spondylosis without myelopathy or radiculopathy, thoracic region; R06.02 Shortness of breath; Z90.49 Acquired absence of other specified parts of digestive tract
CPT/HCPCS: 71260; G0463; Q9967

== ENCOUNTER 2025-02-03 13:49 | Emergency (ER) | payer MEDICARE, MEDICAID ==
[~2025-02-03] VITALS: Ht 165.1 cm; Wt 92.8 kg
--- NOTE | 2025-02-03 15:49 | ED.PDOC ---
History of Present Illness HPI Comments This is a 79 year old female presenting to the ED with chief complaint of back pain. Patient reports that she has been experiencing left mid back pain for the past few days, being seen on Monday at [facility]. Patient relays that she was diagnosed with a UTI and ear infection, being prescribed Augmentin. Patient states that she is continuing to experience her left sided back pain with associated left arm pain. Patient notes she has history of ILD and is unsure if her pain is related to it. Patient denies any N/V/D, chest pain, SOB, dizziness, fever, or chills. Chief Complaint: Back Pain Time Seen by MD: 15:45 Primary Care Provider: POLLY Reviewed Notes: Nurses Notes, Medications, Allergies Allergies: Coded Allergies: Codeine (Verified Allergy, Unknown, 10/07/21) Home Meds Active Scripts Methocarbamol (Methocarbamol) 750 Mg Tab, 750 MG PO TID, #30 TAB Prov:SAVANAH CHAO MD 04/12/24 Hydrocodone-Acetaminophen (Hydrocodone Bitartrate/AC 10-325 mg) 1 Tab Tab, 1 TAB PO QID PRN, #30 TAB Prov:SAVANAH CHAO MD 04/12/24 Dicyclomine Hcl (BENTYL CAPSULE) 10 Mg Cp, 1 CAP PO Q6HPRN, #30 CAP 0 Refills Prov:GENNARO RIOJAS 08/18/23 Pantoprazole Sodium Sesquihydr (Protonix) 40 Mg Tab, 40 MG PO DAILY, #30 TAB 2 Refills Prov:ERENDIRA CHRISTOPHER MD 07/12/23 Sucralfate (Sucralfate) 1 Gm Tab, 1 GM PO QIDACHS for 30 Days, #120 TAB 2 Refills Prov:ERENDIRA CHRISTOPHER MD 07/12/23 Tramadol Hcl (Ultram) 50 Mg Tab, 1 TAB PO BID, #20 TAB Prov:ADA SANDOVAL 01/06/22 Reported Medications Metformin Hydrochloride (Metformin Hcl) 500 Mg Tab, 0.5 TAB PO BID 04/10/24 Gabapentin (Gabapentin) 100 Mg Cap, 1 TAB PO DAILY 04/10/24 Aspirin (Aspirin) 81 Mg Chw, 1 TAB PO DAILY 04/10/24 Lidocaine (Lidocaine) 5 % Pad, 1 PATCH TOP DAILY 07/12/23 Atorvastatin Calcium (ATORVASTATIN CALCIUM) 40 Mg Tab, 1 TAB PO DAILY 07/11/23 Losartan Potassium (Losartan Potassium) 50 Mg Tab, 1 TAB PO DAILY 07/11/23 Information Source: Patient Mode of Arrival: Ambulatory Severity: Moderate Timing: Days Duration: Since onset Prehospital treatment: None Past Medical History PAST MEDICAL HISTORY: Arthritis, Cancer, High Lipids, HTN, Thyroid Past Medical History (Other): ILD Surgical History: BTL, Cholecystectomy BOWLING BALL MARKER History: No Pertinent BOWLING BALL MARKER History Family History Family History: Reviewed,noncontributory to illness Social History Smoker: Non-Smoker Alcohol: Denies ETOH Use Drugs: Denies Drug Use Lives In: Home Constitutional: denies: chills, diaphoresis, fatigue, fever, malaise, sweats, weakness, others EENTM: denies: blurred vision, double vision, ear bleeding, ear discharge, ear drainage, ear pain, ear ringing, eye pain, eye redness, hearing loss, mouth pain, mouth swelling, nasal discharge, nose bleeding, nose congestion, nose pain, photophobia, tearing, throat pain, throat swelling, voice changes, others Respiratory: denies: cough, hemoptysis, orthopnea, SOB at rest, shortness of breath, SOB with excertion, stridor, wheezing, others Cardiovascular: reports: left arm pain; denies: chest pain, dizzy spells, diaphoresis, Dyspnea on exertion, edema, irregular heart beat, lightheadedness, palpitations, PND, syncope, others Gastrointestinal: denies: abdomen distended, abdominal pain, blood streaked bowels, constipated, diarrhea, dysphagia, difficulty swallowing, hematemesis, melena, nausea, poor appetite, poor fluid intake, rectal bleeding, rectal pain, vomiting, others Genitourinary: denies: abnormal vagina bleeding, burning, dyspareunia, dysuria, flank pain, frequency, hematuria, incontinence, pain, , vagina disc harge, urgency, others Neurological: denies: dizziness, fainting, headache, left sided numbness, left sided weakness, numbness, paresthesia, pre-existing deficit, right sided numbness, right sided weakness, seizure, speech problems, tingling, tremors, weakness, others Musculoskeletal: reports: back pain; denies: gout, joint pain, joint swelling, muscle pain, muscle stiffness, neck pain, others Integumetry: denies: bruises, change in color, change in hair/nails, dryness, laceration, lesions, lumps, rash, wounds, others Allergic/Immunocompromised: denies: Difficulty Healing, Frequent Infections, Hives, Itching, others Hematologic/Lymphatic: denies: anemia, blood clots, easy bleeding, easy bruising, swollen glands, others Endocrine: denies: excessive hunger, excessive sweating, excessive thirst, excessive urination, flushing, intolerance to cold, intolerance to heat, unexplained weight gain, unexplained weight loss, others Psychiatric: denies: anxiety, bipolar disorder, depression, hopeless, panic disorder, schizophrenia, sleepless, suicidal, others All Other Systems: Reviewed and Negative Physical Exam General Appearance: No Apparent Distress, Normal HEENT: Normal ENT Inspection, Pharynx Normal, TMs Normal Neck: Full Range of Motion, Non-Tender, Normal, Normal Inspection Respiratory: Chest Non-Tender, Lungs Clear, No Accessory Muscle Use, No Respi ratory Distress, Normal Breath Sounds Cardiovascular: No Edema, No JVD, No Murmur, No Gallop, Normal Peripheral Pulses, Regular Rate/Rhythm Breast Exam: Deferred Gastrointestinal: No Organomegaly, Non Tender, No Pulsatile Mass, Normal Bowel Sounds, Soft Genitalia: Deferred Pelvic: Deferred Rectal: Deferred Extremities: No calf tenderness, Normal capillary refill, Normal inspection, Normal range of motion, Non-tender, No pedal edema Musculoskeletal : Apperance: Normal Neurologic: Alert, automation qa tester II-XII nml as Tested, No Motor Deficits, Normal Affect, Normal Mood, No Sensory Deficits Cerebellar Function: Normal Reflexes: Normal Skin: Dry, Normal Color, Warm Lymphatic: No Adenopathy Was a procedure done? Was a procedure done?: No Differential Dx Considerations may include: UTI, musculoskeletal strain, lung irritation, worsening ILD X-Ray, Labs, Meds, VS Vital Signs Date Time Temp Pulse Resp B/P (MAP) Pulse Ox O2 Delivery O2 Flow Rate FiO2 02/03/25 13:55 97.8 93 16 160/82 94 97.8 02/03/25 13:55 Room Air* 0 21 Lab Test 02/03/25 16:18 Range/Units White Blood Count 7.7 4.4-10.8 10^3/uL Red Blood Count 3.33 L 4.0-5.20 10^6/uL Hemoglobin 11.0 L 12.2-16.2 g/dL Hematocrit 32.8 L 36.0-46.0 % Mean Corpuscular Volume 98.4 80.0-100.0 fL Mean Corpuscular Hemoglobin 33.1 H 28.0-32.0 pg Mean Corpuscular Hemoglobin Concent 33.7 32.0-36.0 g/dL Red Cell Distribution Width 14.0 11.8-14.3 % Platelet Count 311 140-450 10^3/uL Mean Platelet Volume 7.4 6.9-10.8 fL Neutrophils (%) (Auto) 45.0 37.0-80.0 % Lymphocytes (%) (Auto) 42.3 10.0-50.0 % Monocytes (%) (Auto) 6.1 0.0-12.0 % Eosinophils (%) (Auto) 5.7 0.0-7.0 % Basophils (%) (Auto) 0.9 0.0-2.0 % Neutrophils # (Auto) 3.5 1.6-8.6 10 ^3/uL Lymphocytes # (Auto) 3.2 0.4-5.4 10 ^3/uL Monocytes # (Auto) 0.5 0-1.3 10 ^3/uL Eosinophils # (Auto) 0.4 0-0.8 10 ^3/uL Basophils # (Auto) 0.1 0-0.2 10 ^3/uL Nucleated Red Blood Cells 0.0 % Sodium Level 139 136-145 mmol/L Potassium Level 4.3 3.5-5.1 mmol/L Chloride Level 103 98-107 mmol/L Carbon Dioxide Level 28 20-31 mmol/L Anion Gap 8 5-15 Blood Urea Nitrogen 17 9-23 mg/dL Creatinine 0.85 0.550-1.02 mg/dL Glomerular Filtration Rate Calc 71 >90 mL/min BUN/Creatinine Ratio 20.0 10.0-20.0 Serum Glucose 99 74-106 mg/dL Calcium Level 9.2 8.7-10.4 mg/dL Troponin I High Sensitivity < 3 L </=34 ng/L Time of 1ST Reevaluation: 16:44 Reevaluation 1ST: Unchanged Patient Education/Counseling: Diagnosis, Treatment Family Education/Counseling: No Family Present SEPSIS Sepsis Screen Date sepsis recognized/suspect: Feb 03, 2025 Time Sepsis recognized/suspect: 1656 Recent Procedure: No On Antibiotic Therapy: Yes Respiratory Rate >20: No Heart Rate >90: No Temp<36 C (96.8 F) or >38.3 C: No SBP <90 or MAP <65 mmHG: No New Acute Mental Status Change: No Is the patient on CPAP, BIPAP,: No Physician Orders Chest Portable (02/03/25 15:45) Urinalysis (02/03/25 15:45) Hydrocodone-Acet 5/325mg Tab ([place] 5/32 (02/03/25 17:00) Vital Signs Date Time Temp Pulse Resp B/P (MAP) Pulse Ox O2 Delivery O2 Flow Rate FiO2 02/03/25 13:55 97.8 93 16 160/82 94 97.8 02/03/25 13:55 Room Air* 0 21 Laboratory Tests Test 02/03/25 16:18 White Blood Count 7.7 10^3/uL (4.4-10.8) Departure 1 Departure Time of Disposition: 16:56 (Patient's workup is benign. Patient is going to [facility] tomorrow and wants to leave. We will discharge patient home with outpatient follow up) Impression: Primary Impression: Musculoskeletal strain Disposition: HOME / SELF CARE / HOMELESS Condition: Stable Additional Instructions: Your kidney function appears normal on your labs. Your x-ray shows chronic interstitial lung disease You likely have musculoskeletal strain. You should continue to take your antibiotics. For pain you can take the followinam: Ibuprofen 400mg with food Noon: Acetaminophen 1000mg 4pm: Ibuprofen 400mg with food 8pm: Acetaminophen 1000mg You should follow up with your regular doctor within one week to ensure you are doing better. If your symptoms worsen or you have any other concerns then please return to the ER. Discharged With: Self Critical Care Note Critical Care Time?: No Stability Stability form required: No Heart Score Heart Score: Heart Score Response (Comments) Value History N/A 0 EKG N/A 0 Age N/A 0 Risk Factors N/A 0 Troponin N/A 0 Total 0 I personally scribed for BISMARK ZALDIVAR MD ([email or web address]) on 02/03/25 at 15:49. Electronically submitted by Michael Pope ([email or web address]). BISMARK ZALDIVAR MD Feb 03, 2025 15:49
--- NOTE | 2025-02-03 16:27 | DVH ---
CHEST RADIOGRAPH Indication: left back pain Technique: Single frontal view of the chest was obtained Comparison: XY CHEST PORTABLE on DOS: 02/16/24, XR CHEST 1 VIEW on DOS: 12/17/22, CHEST XRAY 1 VIEW on DOS: 10/07/21 FINDINGS: Lines and Tubes: None Lungs: Hazy left lower lung zone opacity with bilateral mid to lower lung zone linear densities. Pleura: No effusion. No pneumothorax. Cardiomediastinal contours: Unremarkable Bones: No acute osseous abnormality. IMPRESSION: Bilateral mid to lower lung zone scarring/atelectasis. Underlying left basilar pneumonia can not be excluded.
[2025-02-03 16:33] LABS: Hematocrit 32.8 % (36.0-46.0); Hemoglobin 11.0 g/dL (12.2-16.2); Mean Corpuscular Hemoglobin 33.1 pg (28.0-32.0); Mean Corpuscular Volume 98.4 fL (80.0-100.0); Nucleated Red Blood Cells % 0.0 %
[2025-02-03 16:35] LABS: Anion Gap 8 (5-15); Carbon Dioxide 28 mmol/L (20-31); Chloride 103 mmol/L (98-107); Potassium 4.3 mmol/L (3.5-5.1); Sodium 139 mmol/L (136-145)
[2025-02-03 16:36] LABS: Calcium 9.2 mg/dL (8.7-10.4)
[2025-02-03 16:41] LABS: BUN/Creatinine Ratio 20.0 (10.0-20.0); Blood Urea Nitrogen 17 mg/dL (9-23); Glucose 99 mg/dL (74-106)
[2025-02-03 18:03] VITALS: BP 119/78; PULSE 89; RESP 17; TEMP 98; O2SAT 95
[2025-02-03] MEDS: HYDROcodone-ACET 5/325MG TAB PO ONE (18:05)
== END 2025-02-03 18:05 | disposition home or self-care (01) ==
LOC: ER 13:49
DX: T14.8XXA Other injury of unspecified body region, initial encounter (principal); E78.5 Hyperlipidemia, unspecified; I10 Essential (primary) hypertension; M19.90 Unspecified osteoarthritis, unspecified site; Z79.899 Other long term (current) drug therapy; Z98.51 Tubal ligation status; Z79.891 Long term (current) use of opiate analgesic; Z90.49 Acquired absence of other specified parts of digestive tract; Z88.5 Allergy status to narcotic agent; Z79.84 Long term (current) use of oral hypoglycemic drugs; Z79.82 Long term (current) use of aspirin; X58.XXXA Exposure to other specified factors, initial encounter; Y93.89 Activity, other specified; Y92.89 Other specified places as the place of occurrence of the external cause; Y99.8 Other external cause status
CPT/HCPCS: 36415; 71045; 80048; 84484; 84550; 85025; 85652; 86141; 86431